=== PATIENT | male | born 1945 | race Caucasian/White ===

== ENCOUNTER → 2016-12-20 | Outpatient (CLI) | payer BC ==
[~2016-12-20] MED LIST: ASPI81TA28 PO; BNC/20125 PO; CYAN500T PO; DIAZ-165 PO; FLUT0.0529 PO; GLIM2TAB2 PO; METF1000 PO; MOME1AER4 INH; MULT-513 PO; OMEP20TA PO; VNFI INJ
[2016-12-20 12:10] LABS: BASO % 0.3 %; BASO ABS # 0.03 K/uL (0-0.2); COMPLETE YES; HEMATOCRIT 42.8 % (42-52); IG% 0.2 %; LYMPH % 12.3 %; LYMPH ABS # 1.16 K/uL (1.2-3.4); MEAN CELL VOLUME 91.5 fL (80-100); MEAN CORPUSCULAR HEMOGLOBIN 30.8 pg (25-34); MEAN CORPUSCULAR HGB CONC 33.6 g/dl (32-36); MEAN PLATELET VOLUME 9.6 fL (7.4-10.4); MONO % 12.2 %; PLATELET COUNT 221 K/uL (130-400); RED BLOOD COUNT 4.68 M/uL (4.7-6.1); WHITE BLOOD COUNT 9.46 K/uL (4.8-10.8)
[2016-12-20 12:25] LABS: ESTIMATED AVERAGE GLUCOSE 123 mg/dl; HA1C FLAG Normal (Normal)
[2016-12-20 12:53] LABS: ALT/SGPT 21 U/L (12-78); AST/SGOT 15 U/L (15-37); BLOOD UREA NITROGEN 18 mg/dl (7-18); BUN/CREATININE RATIO 14.7 (10-20); CALCIUM 9.2 mg/dl (8.5-10.1); CARBON DIOXIDE 29 mmol/L (21-32); CHLORIDE 101 mmol/L (98-107); GLUCOSE 117 mg/dl (70-99); POTASSIUM 4.1 mmol/L (3.5-5.1); SODIUM 136 mmol/L (136-145)
[2016-12-20 12:56] LABS: ALKALINE PHOSPHATASE 80 U/L (45-117)
== END | disposition home or self-care (01) ==
LOC: C.LAB 10:37
PROVIDERS: ATTEND Family Medicine
DX: M05.741 Rheumatoid arthritis with rheumatoid factor of right hand without organ or systems involvement (principal); M05.742 Rheumatoid arthritis with rheumatoid factor of left hand without organ or systems involvement; I10 Essential (primary) hypertension; E11.9 Type 2 diabetes mellitus without complications

== ENCOUNTER → 2017-07-02 | Outpatient (CLI) | payer BC ==
[2017-07-02 09:35] LABS: BASO % 0.4 %; BASO ABS # 0.03 K/uL (0-0.2); EOS % 2.7 %; EOS ABS # 0.19 K/uL (0-0.5); HEMATOCRIT 42.3 % (42-52); HEMOGLOBIN 14.6 g/dL (14.0-18.0); IG# 0.01 K/uL (0.00-0.02); LYMPH % 22.2 %; LYMPH ABS # 1.56 K/uL (1.2-3.4); MEAN CELL VOLUME 91.4 fL (80-100); MEAN CORPUSCULAR HEMOGLOBIN 31.5 pg (25-34); MEAN CORPUSCULAR HGB CONC 34.5 g/dl (32-36); MEAN PLATELET VOLUME 9.7 fL (7.4-10.4); MONO % 11.2 %; MONO ABS # 0.79 K/uL (0.11-0.59); NEUT % 63.4 %; NEUT ABS # 4.45 K/uL (1.4-6.5); PLATELET COUNT 230 K/uL (130-400); RED CELL DISTRIBUTION WIDTH CV 13.8 % (11.5-14.5); RED CELL DISTRIBUTION WIDTH SD 45.3 fL (36.4-46.3); WHITE BLOOD COUNT 7.03 K/uL (4.8-10.8)
[2017-07-02 09:50] LABS: HEMOGLOBIN A1C 7.5 % (4.5-5.6)
[2017-07-02 09:55] LABS: CREATININE 1.22 mg/dl (0.60-1.40)
[2017-07-02 09:56] LABS: ALBUMIN 3.9 gm/dl (3.4-5.0); ALT/SGPT 24 U/L (12-78); AST/SGOT 15 U/L (15-37); CHOLESTEROL 176 mg/dl (0-200)
[2017-07-02 09:59] LABS: ALKALINE PHOSPHATASE 88 U/L (45-117); LDL CHOLESTEROL CALCULATED 110 mg/dl; TOTAL PROTEIN 7.4 gm/dl (6.4-8.2)
== END | disposition home or self-care (01) ==
LOC: C.LAB1850 07:05
PROVIDERS: ATTEND Internal Medicine Rheumatology
DX: Z00.00 Encounter for general adult medical examination without abnormal findings (principal); Z13.220 Encounter for screening for lipoid disorders; E11.9 Type 2 diabetes mellitus without complications; B35.3 Tinea pedis; M05.741 Rheumatoid arthritis with rheumatoid factor of right hand without organ or systems involvement; M05.742 Rheumatoid arthritis with rheumatoid factor of left hand without organ or systems involvement

== ENCOUNTER → 2017-10-01 | Outpatient (CLI) | payer BC ==
[2017-10-01 14:34] LABS: BASO % 0.5 %; BASO ABS # 0.04 K/uL (0-0.2); EOS % 2.4 %; EOS ABS # 0.19 K/uL (0-0.5); HEMATOCRIT 39.3 % (42-52); HEMOGLOBIN 13.5 g/dL (14.0-18.0); IG# 0.01 K/uL (0.00-0.02); LYMPH % 19.7 %; LYMPH ABS # 1.59 K/uL (1.2-3.4); MEAN CELL VOLUME 90.3 fL (80-100); MEAN CORPUSCULAR HGB CONC 34.4 g/dl (32-36); MEAN PLATELET VOLUME 9.8 fL (7.4-10.4); MONO ABS # 1.05 K/uL (0.11-0.59); NEUT % 64.3 %; PLATELET COUNT 228 K/uL (130-400); RED CELL DISTRIBUTION WIDTH CV 13.9 % (11.5-14.5); RED CELL DISTRIBUTION WIDTH SD 45.9 fL (36.4-46.3); WHITE BLOOD COUNT 8.08 K/uL (4.8-10.8)
== END | disposition home or self-care (01) ==
LOC: C.LAB1850 12:43
PROVIDERS: ATTEND Neuromusculoskeletal Medicine & OMM
DX: D64.9 Anemia, unspecified (principal)

== ENCOUNTER 2020-03-08 06:12 | Observation (INO) ==
[2020-03-08] MEDS ORDERED: SODIUM CHLORIDE 0.9% 250 ML IV PRN ×2 (06:24→07:33)
--- NOTE | 2020-03-08 06:55 | Emergency Department Note ---
History of Present Illness General Chief complaint: Abnormal Labs/Diagnostic Testing Stated complaint: SEVERE BLEEDING ANEMIA Time Seen by Provider: 03/08/20 06:31 Source: patient, RN notes reviewed and old records reviewed Mode of arrival: ambulatory Limitations: no limitations History of Present Illness Provider complaint: anemia, weakness Onset (ago): week(s) 3 Maximum Pain Intensity: 4 Current Pain Intensity: 0 Relieved By: + rest Exacerbated By: + movement Associated symptoms: + weakness; no chest pain, no diaphoresis, no fever/chills, no loss of appetite, no nausea/vomiting and no shortness of breath Treatments prior to arrival: none This is a 74-year-old male who has a remote history of GI bleed. The patient is unsure of who scoped him however he notes that they were unable to find history of a bleed. The patient notes for the past 2 or 3 weeks he has been progressively weaker. He went to his primary care physician's office who checked a hemoglobin level. The patient was then sent to the emergency department. Patient reports the weakness is made worse by movement however rest makes it better. He has not taken anything for the weakness prior to arrival. Home Medications Medication Instructions Recorded Confirmed Type aspirin 81 mg tablet 81 mg PO DAILY tab 10/31/18 03/08/20 History cyanocobalamin (vitamin B-12) 1,000 mcg PO WEEKLY tab 10/31/18 03/08/20 History 1,000 mcg tablet fluticasone propionate 50 2 sprays INTRANASAL QPM #3 gm 10/31/18 03/08/20 History mcg/actuation nasal spray,suspension lancets 33 gauge #100 ea 10/31/18 02/21/20 History thiamine HCl (vitamin B1) 50 mg 50 mg PO WEEKLY tab 10/31/18 03/08/20 History tablet cholecalciferol (vitamin D3) 25 1,000 units PO .COMPLEX 11/12/18 03/08/20 History mcg (1,000 unit) capsule vitamin E (dl, acetate) 400 unit 400 units PO WEEKLY cap 11/12/18 03/08/20 History capsule blood sugar diagnostic #10 ea 03/15/19 02/21/20 History FreeStyle Marcio 14 Day Manson #1 ea NS 03/16/19 02/21/20 Rx FreeStyle Marcio 14 Day Sensor #2 ea NS 05/14/19 02/21/20 Rx methimazole 5 mg tablet 5 mg PO DAILY #90 tab 05/23/19 03/08/20 Rx mometasone 1 inh INHALATION QPM #3 ea 11/01/19 03/08/20 Rx metformin 1,000 mg tablet 1,000 mg PO BID #180 tab 01/11/20 03/08/20 Rx diclofenac sodium 1 % topical gel 4 g TOPICAL QID PRN #100 g 02/21/20 03/08/20 Rx multivitamin 1 tab PO DAILY tab 02/21/20 03/08/20 History olmesartan 20 0.5 tab PO Q OTHER DAY tab 02/21/20 03/08/20 History mg-hydrochlorothiazide 12.5 mg tablet diazepam 5 mg tablet 2.5 - 5 mg PO DAILY #30 tab 03/07/20 03/08/20 Rx aspirin [Aspirin Low Dose] 81 mg PO DAILY 03/08/20 03/08/20 History Allergies Allergy/AdvReac Type Severity Reaction Status Date / Time No Known Drug Allergies Allergy Verified 02/21/20 08:40 Past Med/Surg History Medical History Allergic rhinitis Anxiety Aortic aneurysm Aortic valve stenosis, mild Asthma Carpal tunnel syndrome Cataract (lens) fragments in eye following cataract surgery, bilateral Diabetic foot ulcer associated with type 2 diabetes mellitus Diabetic peripheral neuropathy associated with type 2 diabetes mellitus Diverticulosis of colon Dyslipidemia Hallux abducto valgus, bilateral History of SCC (squamous cell carcinoma) of skin Hypertension Hyperthyroidism Personal history of diabetic foot ulcer Rheumatoid arthritis involving both hands with positive rheumatoid factor Stage 2 chronic kidney disease Venous insufficiency Surgical History History of appendectomy Hx of tonsillectomy No pertinent past surgical history Success teeth extracted Family History Father Myocardial infarction Grandfather Myocardial infarction Denies family history of Ovarian cancer Prostate cancer Breast cancer Colorectal cancer Social History (Updated 03/08/20 @ 10:01 by Lazaro El, DO) Smoking Status: Former smoker Tobacco Type: Cigarettes Age Started Using Tobacco: 16; Age Quit Using Tobacco: 56; Cigarettes Per Day: 4; Second Hand Exposure: No; Do You Dip or Chew Tobacco: No; Tobacco Cessation Education Requested by Patient: No Hx Alcohol Use: Yes Hx Substance Use: No Preferred Language: Mosotho Communication Ability: Effective Visual Impairment: Partially Limited Hearing Ability: Use of Hearing Aid 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: No Beliefs That Will Affect Care: None marital status: Current Living Situation: Spouse current occupational status: retired Other Information That Helps Us Care for You: No Feels Safe at Home: Yes Safety Concerns: Feels Safe At This Time Childhood Exposure to Second-Hand Smoke: Yes Dental Care, Regularly: Yes Physical Activity Frequency: 5-6 Times per Week Seatbelt Use: always Sunscreen Use: No Assistive Devices: Contacts Assistive Devices Comment: left contact Review of Systems A total of 10 systems reviewed and were otherwise negative Physical Exam Vital Signs Vital Signs - 24 hr 03/08/20 06:15 03/08/20 06:36 03/08/20 06:38 Temperature 36.8 C Temperature Source Oral Pulse Rate 101 H 82 82 Pulse Rate from SpO2 Sensor 83 82 Respiratory Rate 18 16 16 Respiratory Depth Normal Blood Pressure 165/77 H 147/81 H Blood Pressure Mean 106 117 Blood Pressure Position Lying Pulse Oximetry 98 99 99 Oxygen Delivery Method Room Air Room Air Room Air Sepsis Recent Fever Within 48 Hours No Sepsis New/Unexplained Change in Mental Status N/A Sepsis Action Taken by Nursing No Action Required VITAL SIGNS - Vital signs and nursing notes were reviewed. GENERAL - 74-year-old male appearing stated age who is in no acute distress. Communicates well with provider and answers questions appropriately. SKIN - Without rashes. HEAD - NC/AT. EYES - PERRL with EOMI bilaterally. Sclera anicteric. Palpebral conjunctiva pink and moist with no injection noted. EARS - No deformities of external structures noted on gross examination bilaterally. No pain elicited with palpation of the tragus bilaterally. External auditory canals without discharge or otorrhea. Tympanic membranes pearly khanna without retraction or bulging. No fluid or purulent material visualized behind the TM. Handle of malleus, umbo, cone of light, pars tensa/flaccid all easily visualized. NOSE - Midline and without cyanosis. No epistaxis or purulent drainage noted. Septum midline without deviation or septal hematoma noted. MOUTH/OROPHARYNX - Without perioral cyanosis. Buccal mucosa pink and moist and without leukoplakia. Tongue midline with equal elevation of palate bilaterally. No tonsillar hypertrophy, erythema, or exudates noted. dentition noted. NECK - Neck with FROM. Supple to palpation. lymphadenopathy noted. No nuchal rigidity. LUNGS - Chest wall symmetric without accessory muscle use, intercostals retractions, or central cyanosis. Normal vesicular breath sounds CTA B/L. No wheezes, rales, or rhonchi appreciated. CARDIAC - RRR with S1/S2. No murmur, rubs, or gallops appreciated. ABDOMEN - Abdominal contour without pulsations or visible masses. BS normoactive all four quadrants. No tenderness, palpable masses, hepatosplenomegaly, or ascites noted. RECTAL - Black tarry stool, heme positive EXTREMITIES - No clubbing or peripheral cyanosis. No pretibial edema present. +3/5 radial, posterior tibial, and dorsalis pedis pulses palpated throughout. +5/5 strength noted in UE/LE bilaterally. NEUROLOGIC - Cranial nerves II through XII grossly intact. Sensory intact to light touch throughout. Patellar reflexes +2/4. PSYCH - A&Ox3 and cooperates fully with examiner. Pt is very pleasant and interacts well with examiner. Procedures Stool Hemoccult Procedural Steps Taken: stool placed in appropriate test area, developer placed on stool and control areas and controls appropriately positive and negative Hemoccult result: positive Course Administered Medications Acetaminophen (Acetaminophen 325 Mg Tab) 650 mg PO Q4H PRN PRN Reason: Pain Stop: 04/08/20 05:14 Last Admin: 03/09/20 05:23 Dose: 650 mg Documented by: [id number] Aspirin (Aspirin 81 Mg Ectab) 81 mg PO DAILY [facility] Stop: 04/07/20 09:04 Last Admin: 03/08/20 09:44 Dose: Not Given Documented by: [id number] Diazepam (Diazepam 5 Mg Tablet) 2.5 mg PO BID [facility] Stop: 04/07/20 20:59 Last Admin: 03/08/20 21:09 Dose: 2.5 mg Documented by: [id number] Fluticasone Furoate (Fluticasone Furoate 100mcg 14 Puffs/Inhaler) 1 puffs INH QPM [facility] Stop: 04/07/20 20:59 Last Admin: 03/08/20 21:07 Dose: Not Given Documented by: [id number] Fluticasone Propionate (Fluticasone Propionate Na Spr 16 Gm Btl) 2 sprays NA QPM [facility] Stop: 04/07/20 20:59 Last Admin: 03/08/20 21:07 Dose: Not Given Documented by: [id number] Gabapentin (Gabapentin 600 Mg Tab) 600 mg PO Q8H [facility] Stop: 03/09/20 22:01 Last Admin: 03/09/20 05:19 Dose: 600 mg Documented by: [id number] Thiamine HCl 100 mg/ Syringe 10 mls @ 2 mls/min IV QAM [facility] Stop: 04/07/20 10:59 Last Admin: 03/08/20 12:26 Dose: 2 mls/min Documented by: [id number] Folic Acid 1 mg/ Syringe 10 mls @ 5 mls/min IV QAM [facility] Stop: 04/07/20 10:59 Last Admin: 03/08/20 12:25 Dose: 5 mls/min Documented by: [id number] Insulin Aspart (Insulin Aspart 100 Units/Ml 3 Ml Pen) 0 units SC ACHS [facility] Stop: 04/07/20 09:04 Last Admin: 03/08/20 21:10 Dose: 2 units Documented by: [id number] Cosigned by: [id number] Admin: 03/08/20 17:39 Dose: 4 units Documented by: [id number] Cosigned by: [id number] Admin: 03/08/20 12:20 Dose: 1 units Documented by: [id number] Cosigned by: [id number] Admin: 03/08/20 09:42 Dose: 3 units Documented by: [id number] Cosigned by: [id number] Methimazole (Methimazole 5 Mg Tablet) 5 mg PO DAILY [facility] Stop: 04/07/20 09:04 Last Admin: 03/08/20 12:27 Dose: 5 mg Documented by: [id number] Multivitamins (Multivitamin Tab) 1 tab PO DAILY [facility] Stop: 04/07/20 09:04 Last Admin: 03/08/20 12:20 Dose: 1 tab Documented by: [id number] Vitamin E (Tocopheryl, Dl-Alpha 400 Units Cap) 400 units PO We@0900 [facility] Stop: 04/07/20 10:59 Last Admin: 03/08/20 12:28 Dose: 400 units Documented by: [id number] Discontinued Medications Acetaminophen (Acetaminophen 325 Mg Tab) Confirm Administered Dose 325 mg .ROUTE .STK-MED ONE Stop: 03/09/20 05:18 Last Admin: 03/09/20 05:19 Dose: Not Given Documented by: [id number] Gabapentin (Gabapentin 600 Mg Tab) 1,200 mg PO NOW ONE Stop: 03/08/20 10:31 Last Admin: 03/08/20 12:26 Dose: 1,200 mg Documented by: [id number] Gabapentin (Gabapentin 600 Mg Tab) 600 mg PO Q6H [facility] Stop: 03/08/20 22:01 Last Admin: 03/08/20 21:09 Dose: 600 mg Documented by: [id number] Admin: 03/08/20 17:39 Dose: 600 mg Documented by: [id number] Pantoprazole Sodium 80 mg/ (Dextrose) 120 mls @ 480 mls/hr IV NOW ONE Stop: 03/08/20 07:14 Last Infusion: 03/08/20 07:39 Dose: 0 mls/hr Documented by: [id number] Admin: 03/08/20 07:16 Dose: 480 mls/hr Documented by: [id number] Pantoprazole Sodium 40 mg/ (Dextrose) 100 mls @ 20 mls/hr IV Q5H [facility] Stop: 04/07/20 07:14 Last Admin: 03/08/20 12:49 Dose: Not Given Documented by: [id number] Infusion: 03/08/20 12:48 Dose: 0 mg/hr, 0 mls/hr Documented by: [id number] Admin: 03/08/20 07:39 Dose: 8 mg/hr, 20 mls/hr Documented by: [id number] Sodium Chloride (Nss 1000ml) 1,000 mls @ 80 mls/hr IV .[id number] [facility] Stop: 04/07/20 09:04 Last Infusion: 03/08/20 15:30 Dose: 0 mls/hr Documented by: [id number] Infusion: 03/08/20 09:45 Dose: 0 mls/hr Documented by: [id number] Admin: 03/08/20 09:44 Dose: 80 mls/hr Documented by: [id number] Critical Care Time I have personally spent greater than 30 minutes of critical care time in the direct management of this patient. This includes bedside care, interpretation of diagnostic studies, and testing, discussion with consultants, patient, and family members, and other required patient management activities. This 30 minutes is in excess of all separately billable procedures. Medical Decision Making Differential Diagnosis Reactive airway disease, pneumonia, pneumothorax, COPD, CHF, infections, cardiac ischemia, pulmonary embolism, musculoskeletal, gastrointestinal, as well as other pathologies. Medical Records Attestation: I reviewed the patient's medical records. Home Medications Current Medication List: was personally reviewed by me Laboratory Data Attestation: I reviewed the patient's lab results. Result diagrams: 03/09/20 06:30 03/08/20 06:37 Lab Results 03/08/20 03/08/20 03/08/20 Range/Units 06:37 06:37 06:37 WBC (4.8-10.8) K/uL RBC (4.7-6.1) M/uL Hgb (14.0-18.0) g/dL Hct (42-52) % MCV (80-100) fL MCH (25-34) pg MCHC (32-36) g/dL RDW Std Deviation (36.4-46.3) fL RDW Coeff of Brian (11.5-14.5) % Plt Count (130-400) K/uL MPV (7.4-10.4) fL Immature Gran % (Auto) % Neut % (Auto) % Lymph % (Auto) % Mclean % (Auto) % Eos % (Auto) % Baso % (Auto) % Neut # (Auto) (1.4-6.5) K/uL Lymph # (Auto) (1.2-3.4) K/uL Mclean # (Auto) (0.11-0.59) K/uL Eos # (Auto) (0-0.5) K/uL Baso # (Auto) (0-0.2) K/uL Immature Gran # (Auto) (0.00-0.02) K/uL Polychromasia Hypochromasia PT 11.0 (9.0-12.0) Seconds INR 1.0 (0.9-1.1) APTT 23.8 (21.0-31.0) Seconds PTT Ratio 0.9 Sodium 136 (136-145) mmol/L Potassium 3.9 (3.5-5.1) mmol/L Chloride 101 (98-107) mmol/L Carbon Dioxide 25 (21-32) mmol/L Anion Gap 10.0 (3-11) BUN 20 H (7-18) mg/dl Creatinine 1.39 (0.6-1.4) mg/dl Est Cr Clr Drug Dosing 57.4 ml/min Est GFR ( Amer) 56.7 Est GFR (Non-Af Amer) 48.9 BUN/Creatinine Ratio 14.0 (10-20) Glucose 227 H (70-99) mg/dl Calcium 8.8 (8.5-10.1) mg/dl Magnesium 2.0 (1.8-2.4) mg/dl Total Bilirubin 0.5 (0.2-1) mg/dl Direct Bilirubin 0.2 (0-0.2) mg/dl AST 15 (15-37) U/L ALT 29 (12-78) U/L Alkaline Phosphatase 66 (45-117) U/L Troponin I < 0.015 (0-0.045) ng/ml Total Protein 7.2 (6.4-8.2) gm/dl Albumin 3.7 (3.4-5.0) gm/dl TSH 2.370 (0.300-4.500) uIu/ml SARS-CoV-2 Ag (Rapid) (Negative) Blood Type O Positive Antibody Screen NEGATIVE Crossmatch See Detail 03/08/20 03/08/20 Range/Units 06:37 06:48 WBC 6.08 (4.8-10.8) K/uL RBC 2.65 L (4.7-6.1) M/uL Hgb 6.9 L* (14.0-18.0) g/dL Hct 22.4 L (42-52) % MCV 84.5 (80-100) fL MCH 26.0 (25-34) pg MCHC 30.8 L (32-36) g/dL RDW Std Deviation 48.1 H (36.4-46.3) fL RDW Coeff of Brian 15.4 H (11.5-14.5) % Plt Count 272 (130-400) K/uL MPV 10.3 (7.4-10.4) fL Immature Gran % (Auto) 0.2 % Neut % (Auto) 58.0 % Lymph % (Auto) 25.5 % Mclean % (Auto) 12.7 % Eos % (Auto) 3.1 % Baso % (Auto) 0.5 % Neut # (Auto) 3.53 (1.4-6.5) K/uL Lymph # (Auto) 1.55 (1.2-3.4) K/uL Mclean # (Auto) 0.77 H (0.11-0.59) K/uL Eos # (Auto) 0.19 (0-0.5) K/uL Baso # (Auto) 0.03 (0-0.2) K/uL Immature Gran # (Auto) 0.01 (0.00-0.02) K/uL Polychromasia 1+ Hypochromasia Present PT (9.0-12.0) Seconds INR (0.9-1.1) APTT (21.0-31.0) Seconds PTT Ratio Sodium (136-145) mmol/L Potassium (3.5-5.1) mmol/L Chloride (98-107) mmol/L Carbon Dioxide (21-32) mmol/L Anion Gap (3-11) BUN (7-18) mg/dl Creatinine (0.6-1.4) mg/dl Est Cr Clr Drug Dosing ml/min Est GFR ( Amer) Est GFR (Non-Af Amer) BUN/Creatinine Ratio (10-20) Glucose (70-99) mg/dl Calcium (8.5-10.1) mg/dl Magnesium (1.8-2.4) mg/dl Total Bilirubin (0.2-1) mg/dl Direct Bilirubin (0-0.2) mg/dl AST (15-37) U/L ALT (12-78) U/L Alkaline Phosphatase (45-117) U/L Troponin I (0-0.045) ng/ml Total Protein (6.4-8.2) gm/dl Albumin (3.4-5.0) gm/dl TSH (0.300-4.500) uIu/ml SARS-CoV-2 Ag (Rapid) Negative (Negative) Blood Type Antibody Screen Crossmatch ECG Data Attestation: I personally reviewed and interpreted this ECG as follows: Indication: + weakness Rate (beats per minute): 76 Rhythm: + normal sinus ECG Intervals/blocks: + Incomplete right bundle branch block ECG [place]: + Normal ECG ST segments: no ST depression and no ST elevation Comparison ECG Date: from (11/12/2012) Change: no significant change MDM Narrative Patient was seen and evaluated as above in room A3. Review was performed of nursing notes and vital signs. I did review pertinent previous visits and patient history. After obtaining a thorough history and physical examination the above work up was performed. This 74-year-old male who presents emergency department complaining of generalized weakness. The patient is heme positive on physical examination he was started on a Protonix bolus and drip. Patient was typed and screened and crossed for 1 unit of packed red blood cells. I did discuss the case with gastroenterology as well as the hospitalist service who did agree to admit the patient. Patient signed the consent for blood and this was placed on the chart. An order was placed for continuous cardiac monitoring. The monitor shows a rate of 70 with Normal SInus rhythm. The patient was evaluated during a period of high volume and high acuity while the hospital was at overcapacity during the global COVID-19 pandemic, and that diagnosis was suspected/considered upon their initial presentation. Their evaluation, treatment and testing was consistent with current guidelines for patients who present with complaints or symptoms that may be related to COVID- 19. Impression & Plan Heme positive stool, Acute blood loss anemia Discharge Plan Visit Data Chief Complaint: Abnormal Labs/Diagnostic Testing Stated Complaint: SEVERE BLEEDING ANEMIA ED Provider: Edmond Argueta Discharge Problem: Heme positive stool, Acute blood loss anemia Patient Disposition: Admitted As Inpatient Discharge Instructions Interventions: ED Discharge Assessment Last Done: 03/08/20 09:01
[2020-03-08 06:58] LABS: Partial Thromboplastin Ratio 0.9; Partial Thromboplastin Time 23.8 Seconds (21.0-31.0)
[2020-03-08] MEDS ORDERED: PANTOprazole 80 MG in DEXTROSE 5% 100 ML IV ONE (07:00)
[2020-03-08 07:02] LABS: Hematocrit (blood only) 22.4 % (42-52); Hemoglobin 6.9 g/dL (14.0-18.0); Mean Corpuscular Hgb Conc 30.8 g/dL (32-36); Mean Corpuscular Volume 84.5 fL (80-100); Mean Platelet Volume 10.3 fL (7.4-10.4); Platelet Count 272 K/uL (130-400); RDW Coefficient of Variation 15.4 % (11.5-14.5); RDW Standard Deviation 48.1 fL (36.4-46.3); Red Blood Count 2.65 M/uL (4.7-6.1); White Blood Count 6.08 K/uL (4.8-10.8)
[2020-03-08 07:06] LABS: Alanine Aminotransferase 29 U/L (12-78); Albumin Level 3.7 gm/dl (3.4-5.0); Aspartate Aminotransferase 15 U/L (15-37); Basophils # (auto) 0.03 K/uL (0-0.2); Basophils % (auto) 0.5 %; Bilirubin Direct 0.2 mg/dl (0-0.2); Blood Urea Nitrogen 20 mg/dl (7-18); Calcium 8.8 mg/dl (8.5-10.1); Carbon Dioxide 25 mmol/L (21-32); Chloride 101 mmol/L (98-107); Creatinine Clr Calc Pharmacy 57.4 ml/min; Eosinophils # (auto) 0.19 K/uL (0-0.5); Eosinophils % (auto) 3.1 %; Est GFR (African American) 56.7; Est GFR (Non-African American) 48.9; Glucose 227 mg/dl (70-99); Hypochromasia Present; Immature Granulocytes # (auto) 0.01 K/uL (0.00-0.02); Immature Granulocytes % (auto) 0.2 %; Lymphocytes # (auto) 1.55 K/uL (1.2-3.4); Lymphocytes % (auto) 25.5 %; Monocytes # (auto) 0.77 K/uL (0.11-0.59); Monocytes % (auto) 12.7 %; Neutrophils # (auto) 3.53 K/uL (1.4-6.5); Polychromasia 1+; Potassium 3.9 mmol/L (3.5-5.1); Sodium 136 mmol/L (136-145)
[2020-03-08 07:17] LABS: Alkaline Phosphatase 66 U/L (45-117); Bilirubin,Total 0.5 mg/dl (0.2-1); Total Protein 7.2 gm/dl (6.4-8.2); Troponin I < 0.015 ng/ml (0-0.045)
[2020-03-08] MEDS: PANTOprazole 40 MG in DEXTROSE 5% 100 ML IV SCH ×2 (07:39→12:49)
[2020-03-08] MEDS ORDERED: GLUCOSE 10 TABS/TUBE PO PRN (09:05)
[2020-03-08] MEDS ORDERED: GLUCAGON FOR INJ 1 MG VIAL SQ PRN (09:05)
[2020-03-08] MEDS ORDERED: DEXTROSE 50% 50 ML SYRINGE IV PRN (09:05)
[2020-03-08] MEDS ORDERED: GLUCOSE 40% GEL 15 GM TUBE PO PRN (09:05)
[2020-03-08] MEDS ORDERED: CARBOHYDRATES FOR HYPOGLYCEMIA PO PRN (09:05)
[2020-03-08] MEDS ORDERED: SODIUM CHLORIDE 0.9% 1000ML 1,000 ML IV SCH (09:05)
[2020-03-08] MEDS ORDERED: ONDANSETRON INJ 2 MG/ML 2 ML VIAL IV PRN (09:05)
[2020-03-08] MEDS: MULTIVITAMIN TAB PO SCH ×2 (09:40→12:20)
[2020-03-08] MEDS: INSULIN ASPART 100 UNITS/ML 3 ML PEN SC SCH ×4 (09:42→21:10)
[2020-03-08] MEDS: ASPIRIN 81 MG ECTAB PO SCH (09:44)
--- NOTE | 2020-03-08 10:09 | Gastrointestinal Consultation ---
Date of Consultation March 08, 2020 Assessment & Plan (1) Anemia: 74 year old male admitted through the ED w/ abnormal labs, dark stools. hgb 6. Notes GI bleed in past, obscure per pt. He uses ASA daily, Naproxen every other day. Vitals stable. DDX discussed: concern for UGI, PUD etc. NPO IV PPI bolus and drip Transfuse per primary service Trend HGB EGD today. Supervising Physician Co-Signing Physician Notes I have seen and examined the patient with ANABELL Wood whose note reflects our findings and plan. Patient with melena and anemia. BUN is normal. EGD today to evaluate for UGI source of blood loss in the setting of NSAID use and ASA. History of Present Illness Reason for Consultation: melena, anemia Requesting Physician: Benji Attending Physician: Pipo Leblanc MD History of Present Illness 74 year old male admitted through the ED w/ abnormal labs - gi asked to evaluate for anemia, melena, HGB 6. He notes about 3/4 weeks ago he noted fatigue and ex ercise intolerance. He saw his PCP who ordered CBC and notes slight anemia at that time w/ HGB around 9. He had persistent fatigue, exercise intolerance and sough care - repeat labs at that time showed HGB 6. He was asked to come to ED. Suggets over the past 3/4 weeks he has noted dark, black stools. He often intermittent has dark stools but not persistent like this. No BRB. No abd pain. Chronic GERD maintained on PPI. No breakthrough symptoms. No nausea, vomiting. No fever, chills, CP, SOB. ASA daily Aleve every other day 3-4 liquor containing drinks nightly since May No blood thinners Prior EGD/Colonoscopy for similar around 2012 Allergies Allergy/AdvReac Type Severity Reaction Status Date / Time No Known Drug Allergies Allergy Verified 02/21/20 08:40 Home Medications Medication Instructions Recorded Confirmed Type aspirin 81 mg tablet 81 mg PO DAILY tab 10/31/18 03/08/20 History cyanocobalamin (vitamin B-12) 1,000 mcg PO WEEKLY tab 10/31/18 03/08/20 History 1,000 mcg tablet fluticasone propionate 50 2 sprays INTRANASAL QPM #3 gm 10/31/18 03/08/20 History mcg/actuation nasal spray,suspension lancets 33 gauge #100 ea 10/31/18 02/21/20 History thiamine HCl (vitamin B1) 50 mg 50 mg PO WEEKLY tab 10/31/18 03/08/20 History tablet cholecalciferol (vitamin D3) 25 1,000 units PO .COMPLEX 11/12/18 03/08/20 History mcg (1,000 unit) capsule vitamin E (dl, acetate) 400 unit 400 units PO WEEKLY cap 11/12/18 03/08/20 History capsule blood sugar diagnostic #10 ea 03/15/19 02/21/20 History FreeStyle Marcio 14 Day [place] #1 ea NS 03/16/19 02/21/20 Rx FreeStyle Marcio 14 Day Sensor #2 ea NS 05/14/19 02/21/20 Rx methimazole 5 mg tablet 5 mg PO DAILY #90 tab 05/23/19 03/08/20 Rx mometasone 1 inh INHALATION QPM #3 ea 11/01/19 03/08/20 Rx metformin 1,000 mg tablet 1,000 mg PO BID #180 tab 01/11/20 03/08/20 Rx diclofenac sodium 1 % topical gel 4 g TOPICAL QID PRN #100 g 02/21/20 03/08/20 Rx multivitamin 1 tab PO DAILY tab 02/21/20 03/08/20 History olmesartan 20 0.5 tab PO Q OTHER DAY tab 02/21/20 03/08/20 History mg-hydrochlorothiazide 12.5 mg tablet diazepam 5 mg tablet 2.5 - 5 mg PO DAILY #30 tab 03/07/20 03/08/20 Rx aspirin [Aspirin Low Dose] 81 mg PO DAILY 03/08/20 03/08/20 History Patient History Medical History Allergic rhinitis Anxiety Aortic aneurysm Aortic valve stenosis, mild Asthma Carpal tunnel syndrome Cataract (lens) fragments in eye following cataract surgery, bilateral Diabetic foot ulcer associated with type 2 diabetes mellitus Diabetic peripheral neuropathy associated with type 2 diabetes mellitus Diverticulosis of colon Dyslipidemia Hallux abducto valgus, bilateral History of SCC (squamous cell carcinoma) of skin Hypertension Hyperthyroidism Personal history of diabetic foot ulcer Rheumatoid arthritis involving both hands with positive rheumatoid factor Stage 2 chronic kidney disease Venous insufficiency Surgical History History of appendectomy Hx of tonsillectomy No pertinent past surgical history [place] teeth extracted Family History Father Myocardial infarction Grandfather Myocardial infarction Denies family history of Ovarian cancer Prostate cancer Breast cancer Colorectal cancer Social History (Updated 03/08/20 @ 10:01 by Lazaro El, DO) Smoking Status: Former smoker Tobacco Type: Cigarettes Age Started Using Tobacco: 16; Age Quit Using Tobacco: 56; Cigarettes Per Day: 4; Second Hand Exposure: No; Do You Dip or Chew Tobacco: No; Tobacco Cessation Education Requested by Patient: No Hx Alcohol Use: Yes Hx Substance Use: No Preferred Language: Greenlandic Communication Ability: Effective Visual Impairment: Partially Limited Hearing Ability: Use of Hearing Aid 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 Helper Required: No Beliefs That Will Affect Care: None marital status: Current Living Situation: Spouse current occupational status: retired Other Information That Helps Us Care for You: No Feels Safe at Home: Yes Safety Concerns: Feels Safe At This Time Childhood Exposure to Second-Hand Smoke: Yes Dental Care, Regularly: Yes Physical Activity Frequency: 5-6 Times per Week Seatbelt Use: always Sunscreen Use: No Assistive Devices: Contacts Assistive Devices Comment: left contact Review of Systems Constitutional: no fever, no chills and no fatigue Respiratory: no cough and no dyspnea Cardiovascular: no chest pain and no dyspnea Gastrointestinal: + melena; no abdominal pain, no diarrhea/loose stools and no blood in stools Physical Exam Constitutional: WD/WN, vitals as above Neck: trachea midline Respiratory: normal respiratory effort, lungs clear to auscultation Cardiovascular: Rate/Rhythm: regular rate Gastrointestinal (Abdomen): normal bowel sounds, soft, nontender, no hepatosplenomegaly Results & Data ([facility]) Vital Signs (Past 12 Hours) Vital Signs Temp Pulse Pulse Resp BP BP Pulse Ox 03/08/20 09:14 36.8 C 71 18 154/73 H 97 03/08/20 08:54 35.6 C L 83 16 161/82 H 100 03/08/20 08:53 35.6 C L 83 16 161/82 H 100 03/08/20 08:44 36.7 C 74 18 169/75 H 99 03/08/20 08:29 36.5 C 72 18 151/77 H 100 03/08/20 08:13 77 18 151/77 H 100 03/08/20 08:11 36.9 C 72 18 151/77 H 100 03/08/20 06:38 82 16 99 03/08/20 06:36 82 16 147/81 H 99 03/08/20 06:15 36.8 C 101 H 18 165/77 H 98 Laboratory Results 03/08/20 03/08/20 03/08/20 Range/Units 08:51 08:15 08:15 WBC (4.8-10.8) K/uL RBC (4.7-6.1) M/uL Hgb (14.0-18.0) g/dL Hct (42-52) % MCV (80-100) fL MCH (25-34) pg MCHC (32-36) g/dL RDW Std Deviation (36.4-46.3) fL RDW Coeff of Brian (11.5-14.5) % Plt Count (130-400) K/uL MPV (7.4-10.4) fL Immature Gran % (Auto) % Neut % (Auto) % Lymph % (Auto) % Sharp % (Auto) % Eos % (Auto) % Baso % (Auto) % Neut # (Auto) (1.4-6.5) K/uL Lymph # (Auto) (1.2-3.4) K/uL Sharp # (Auto) (0.11-0.59) K/uL Eos # (Auto) (0-0.5) K/uL Baso # (Auto) (0-0.2) K/uL Immature Gran # (Auto) (0.00-0.02) K/uL Polychromasia Hypochromasia PT (9.0-12.0) Seconds INR (0.9-1.1) APTT (21.0-31.0) Seconds PTT Ratio Sodium (136-145) mmol/L Potassium (3.5-5.1) mmol/L Chloride (98-107) mmol/L Carbon Dioxide (21-32) mmol/L Anion Gap (3-11) BUN (7-18) mg/dl Creatinine (0.6-1.4) mg/dl Est Cr Clr Drug Dosing ml/min Est GFR ( Amer) Est GFR (Non-Af Amer) BUN/Creatinine Ratio (10-20) Glucose (70-99) mg/dl POC Glucose 258 H (70-99) mg/dl Calcium (8.5-10.1) mg/dl Magnesium (1.8-2.4) mg/dl Total Bilirubin (0.2-1) mg/dl Direct Bilirubin (0-0.2) mg/dl AST (15-37) U/L ALT (12-78) U/L Alkaline Phosphatase (45-117) U/L Troponin I (0-0.045) ng/ml Total Protein (6.4-8.2) gm/dl Albumin (3.4-5.0) gm/dl TSH (0.300-4.500) uIu/ml COVID-19 Eval Order Covid19 IDNow atMTNC SARS-CoV-2, RNA, NAAT NEGATIVE (NEGATIVE) SARS-CoV-2 Ag (Rapid) (Negative) Blood Type Antibody Screen Crossmatch 03/08/20 03/08/20 03/08/20 Range/Units 06:48 06:37 06:37 WBC 6.08 (4.8-10.8) K/uL RBC 2.65 L (4.7-6.1) M/uL Hgb 6.9 L* (14.0-18.0) g/dL Hct 22.4 L (42-52) % MCV 84.5 (80-100) fL MCH 26.0 (25-34) pg MCHC 30.8 L (32-36) g/dL RDW Std Deviation 48.1 H (36.4-46.3) fL RDW Coeff of Brian 15.4 H (11.5-14.5) % Plt Count 272 (130-400) K/uL MPV 10.3 (7.4-10.4) fL Immature Gran % (Auto) 0.2 % Neut % (Auto) 58.0 % Lymph % (Auto) 25.5 % Sharp % (Auto) 12.7 % Eos % (Auto) 3.1 % Baso % (Auto) 0.5 % Neut # (Auto) 3.53 (1.4-6.5) K/uL Lymph # (Auto) 1.55 (1.2-3.4) K/uL Sharp # (Auto) 0.77 H (0.11-0.59) K/uL Eos # (Auto) 0.19 (0-0.5) K/uL Baso # (Auto) 0.03 (0-0.2) K/uL Immature Gran # (Auto) 0.01 (0.00-0.02) K/uL Polychromasia 1+ Hypochromasia Present PT (9.0-12.0) Seconds INR (0.9-1.1) APTT (21.0-31.0) Seconds PTT Ratio Sodium 136 (136-145) mmol/L Potassium 3.9 (3.5-5.1) mmol/L Chloride 101 (98-107) mmol/L Carbon Dioxide 25 (21-32) mmol/L Anion Gap 10.0 (3-11) BUN 20 H (7-18) mg/dl Creatinine 1.39 (0.6-1.4) mg/dl Est Cr Clr Drug Dosing 57.4 ml/min Est GFR ( Amer) 56.7 Est GFR (Non-Af Amer) 48.9 BUN/Creatinine Ratio 14.0 (10-20) Glucose 227 H (70-99) mg/dl POC Glucose (70-99) mg/dl Calcium 8.8 (8.5-10.1) mg/dl Magnesium 2.0 (1.8-2.4) mg/dl Total Bilirubin 0.5 (0.2-1) mg/dl Direct Bilirubin 0.2 (0-0.2) mg/dl AST 15 (15-37) U/L ALT 29 (12-78) U/L Alkaline Phosphatase 66 (45-117) U/L Troponin I < 0.015 (0-0.045) ng/ml Total Protein 7.2 (6.4-8.2) gm/dl Albumin 3.7 (3.4-5.0) gm/dl TSH 2.370 (0.300-4.500) uIu/ml COVID-19 Eval Order SARS-CoV-2, RNA, NAAT (NEGATIVE) SARS-CoV-2 Ag (Rapid) Negative (Negative) Blood Type Antibody Screen Crossmatch 12/30/20 12/30/20 Range/Units 06:37 06:37 WBC (4.8-10.8) K/uL RBC (4.7-6.1) M/uL Hgb (14.0-18.0) g/dL Hct (42-52) % MCV (80-100) fL MCH (25-34) pg MCHC (32-36) g/dL RDW Std Deviation (36.4-46.3) fL RDW Coeff of Brian (11.5-14.5) % Plt Count (130-400) K/uL MPV (7.4-10.4) fL Immature Gran % (Auto) % Neut % (Auto) % Lymph % (Auto) % Sharp % (Auto) % Eos % (Auto) % Baso % (Auto) % Neut # (Auto) (1.4-6.5) K/uL Lymph # (Auto) (1.2-3.4) K/uL Sharp # (Auto) (0.11-0.59) K/uL Eos # (Auto) (0-0.5) K/uL Baso # (Auto) (0-0.2) K/uL Immature Gran # (Auto) (0.00-0.02) K/uL Polychromasia Hypochromasia PT 11.0 (9.0-12.0) Seconds INR 1.0 (0.9-1.1) APTT 23.8 (21.0-31.0) Seconds PTT Ratio 0.9 Sodium (136-145) mmol/L Potassium (3.5-5.1) mmol/L Chloride (98-107) mmol/L Carbon Dioxide (21-32) mmol/L Anion Gap (3-11) BUN (7-18) mg/dl Creatinine (0.6-1.4) mg/dl Est Cr Clr Drug Dosing ml/min Est GFR ( Amer) Est GFR (Non-Af Amer) BUN/Creatinine Ratio (10-20) Glucose (70-99) mg/dl POC Glucose (70-99) mg/dl Calcium (8.5-10.1) mg/dl Magnesium (1.8-2.4) mg/dl Total Bilirubin (0.2-1) mg/dl Direct Bilirubin (0-0.2) mg/dl AST (15-37) U/L ALT (12-78) U/L Alkaline Phosphatase (45-117) U/L Troponin I (0-0.045) ng/ml Total Protein (6.4-8.2) gm/dl Albumin (3.4-5.0) gm/dl TSH (0.300-4.500) uIu/ml COVID-19 Eval Order SARS-CoV-2, RNA, NAAT (NEGATIVE) SARS-CoV-2 Ag (Rapid) (Negative) Blood Type O Positive Antibody Screen NEGATIVE Crossmatch See Detail
--- NOTE | 2020-03-08 10:13 | Anesthesiology Consultation ---
Date of Service March 08, 2020 Assessment & Plan (1) Encounter for pre-operative examination: Chart Review Chart Review: Acceptable Risk for Surgery Consults Requested none ASA ASA3 Proposed Anesthesia Anesthesia Type: MAC Additional Notes 1st unit of PRBC finishing. Pt to get second unit of PRBC. History Surgery Operation Date: 03/08/20 16:30 Proposed Procedures p Esophagogastroduodenoscopy Dr Lofton - Viviana Lofton, DO Height/Weight Height: 6 ft Weight: 108 kg Allergies Allergy/AdvReac Type Severity Reaction Status Date / Time No Known Drug Allergies Allergy Verified 02/21/20 08:40 Medications Home Medications Medication Instructions Recorded Confirmed Last Taken aspirin 81 mg tablet 81 mg PO DAILY tab 10/31/18 03/08/20 Unknown cyanocobalamin (vitamin B-12) 1,000 mcg PO WEEKLY tab 10/31/18 03/08/20 Unknown 1,000 mcg tablet fluticasone propionate 50 2 sprays INTRANASAL QPM #3 gm 10/31/18 03/08/20 Unknown mcg/actuation nasal spray,suspension lancets 33 gauge #100 ea 10/31/18 02/21/20 Unknown thiamine HCl (vitamin B1) 50 mg 50 mg PO WEEKLY tab 10/31/18 03/08/20 Unknown tablet cholecalciferol (vitamin D3) 25 1,000 units PO .COMPLEX 11/12/18 03/08/20 Unknown mcg (1,000 unit) capsule vitamin E (dl, acetate) 400 unit 400 units PO WEEKLY cap 11/12/18 03/08/20 Unknown capsule blood sugar diagnostic #10 ea 03/15/19 02/21/20 Unknown FreeStyle Marcio 14 Day [place] #1 ea NS 03/16/19 02/21/20 Unknown FreeStyle Marcio 14 Day Sensor #2 ea NS 05/14/19 02/21/20 Unknown methimazole 5 mg tablet 5 mg PO DAILY #90 tab 05/23/19 03/08/20 Unknown mometasone 1 inh INHALATION QPM #3 ea 11/01/19 03/08/20 Unknown metformin 1,000 mg tablet 1,000 mg PO BID #180 tab 01/11/20 03/08/20 Unknown diclofenac sodium 1 % topical gel 4 g TOPICAL QID PRN #100 g 02/21/20 03/08/20 Unknown multivitamin 1 tab PO DAILY tab 02/21/20 03/08/20 Unknown olmesartan 20 0.5 tab PO Q OTHER DAY tab 02/21/20 03/08/20 Unknown mg-hydrochlorothiazide 12.5 mg tablet diazepam 5 mg tablet 2.5 - 5 mg PO DAILY #30 tab 03/07/20 03/08/20 Unknown aspirin [Aspirin Low Dose] 81 mg PO DAILY 03/08/20 03/08/20 Unknown Active Medications Generic Name Dose Route Start Last Admin Trade Name Brooks PRN Reason Stop Dose Admin Aspirin 81 mg 03/08/20 09:05 03/08/20 09:44 Aspirin 81 Mg Ectab PO 04/07/20 09:04 Not Given DAILY MAGALI Pantoprazole Sodium 40 mg/ 100 mls @ 20 mls/hr 03/08/20 07:15 03/08/20 07:39 Dextrose IV 04/07/20 07:14 8 mg/hr Q5H MAGALI 20 mls/hr Administration 8 MG/HR Sodium Chloride 1,000 mls @ 80 mls/hr 03/08/20 09:05 03/08/20 09:45 Nss 1000ml IV 04/07/20 09:04 0 mls/hr .[id number] MAGALI Infusion Insulin Aspart 0 units 03/08/20 09:05 03/08/20 09:42 Insulin Aspart 100 Units/Ml 3 Ml Pen SC 04/07/20 09:04 3 units ACHS MAGALI Administration Multivitamins 1 tab 03/08/20 09:05 03/08/20 09:40 Multivitamin Tab PO 04/07/20 09:04 1 tab DAILY MAGALI Administration Past Medical History Medical History Allergic rhinitis Anxiety Aortic aneurysm Aortic valve stenosis, mild Asthma Carpal tunnel syndrome Cataract (lens) fragments in eye following cataract surgery, bilateral Diabetic foot ulcer associated with type 2 diabetes mellitus Diabetic peripheral neuropathy associated with type 2 diabetes mellitus Diverticulosis of colon Dyslipidemia Hallux abducto valgus, bilateral History of SCC (squamous cell carcinoma) of skin Hypertension Hyperthyroidism Personal history of diabetic foot ulcer Rheumatoid arthritis involving both hands with positive rheumatoid factor Stage 2 chronic kidney disease Venous insufficiency Past Family History Family History Father Myocardial infarction Grandfather Myocardial infarction Denies family history of Ovarian cancer Prostate cancer Breast cancer Colorectal cancer Past Surgical History Surgical History History of appendectomy Hx of tonsillectomy No pertinent past surgical history [place] teeth extracted Social History Smoking Status: Former smoker tobacco type: cigarettes Smoking cigarettes per day: 4 Do You Dip or Chew Tobacco: No Hx Alcohol Use: Yes Hx Substance Use: No substance use type: does not use Physical Exam Vital Signs Last Vital Signs Temp 36.9 C 03/08/20 10:14 Pulse 76 03/08/20 10:14 Resp 18 03/08/20 10:14 BP 173/78 H 03/08/20 10:14 Pulse Ox 100 03/08/20 10:14 Testing Laboratory Results 03/08/20 06:37 03/08/20 06:37 PT 11.0 Seconds (9.0-12.0) 03/08/20 06:37 INR 1.0 (0.9-1.1) 03/08/20 06:37 APTT 23.8 Seconds (21.0-31.0) 03/08/20 06:37 Blood Type O Positive 03/08/20 06:37 Antibody Screen NEGATIVE 03/08/20 06:37 03/08/20 08:51 POC Glucose 258 H COVID neg Electrocardiogram Date: 03/08/20 Findings: + NSR @ (76) incomplete RBBB, no significant change from 11/12/2012
--- NOTE | 2020-03-08 10:15 | History & Physical Report ---
Date of Service March 08, 2020 Assessment & Plan (1) Acute blood loss anemia: Continue Protonix gtt at 8 mg per hour Consult [facility] GI for endoscopic workup NPO for now (2) Heme positive stool: (3) Diabetes type 2, controlled: Hold Metformin therapy at present Sliding scale with Novolog ordered NPO at present for procedures (4) ETOH abuse: Drinks 3/4 of a quart of Liz daily AWSS ordered Resume outpatient Valium No prior history of outpatient rehab or alcohol Withdrawal symptoms Last drink 2 days ago. (5) DVT prophylaxis: No chemical prophylaxis due to acute GI bleed SCD's ordered Admission and Anticipated Discharge Date Admission Date: March 08, 2020 History of Present Illness Chief Complaint: Anemia Primary Care Provider: Migdalia Jeffries MD Tyrese Rios presented to the ER today with complaints of fatigue and a low Hemoglobin found on lab testing via Dr. Jeffries's office. He states that approximately 5 years ago he underwent a "major workup" for a prior GI bleed. He states that his workup at that time consisted of "multiple endoscopies" including a capsule endoscopy. No source of bleeding was found, and he was placed on Iron supplementation. His Hgb responded and was in the 14 range for years. He states that approximately 1 month ago he developed dyspnea on exertion as well as fatigue. He had a Hgb checked 2 weeks ago which was 9.6. He subsequently had dark stools and had a repeat Hgb yesterday at Dr. Jeffries's office, and it was noted to be 6.6. He was subsequently told to report to the ER. Upon arrival his Hgb was confirmed to be 6.6. Upon arrival to the ER, he was noted to be hemodynamically stable, he was transfused 2u PRBC was started on a protonix gtt and was subsequently admitted. At the time I saw the patient, he was feeling slightly improved. He denies any abdominal pain, fevers, chills, nausea, vomiting, hematemesis, or hematochezia. He notes dark stools, but no tarry stools. He takes aspirin therapy daily, but no other anticoagulation/antiplatelet therapy. He denies any further complaints at this time. Allergies Allergy/AdvReac Type Severity Reaction Status Date / Time No Known Drug Allergies Allergy Verified 02/21/20 08:40 Home Medications Medication Instructions Recorded Confirmed Type aspirin 81 mg tablet 81 mg PO DAILY tab 10/31/18 03/08/20 History cyanocobalamin (vitamin B-12) 1,000 mcg PO WEEKLY tab 10/31/18 03/08/20 History 1,000 mcg tablet fluticasone propionate 50 2 sprays INTRANASAL QPM #3 gm 10/31/18 03/08/20 History mcg/actuation nasal spray,suspension lancets 33 gauge #100 ea 10/31/18 02/21/20 History thiamine HCl (vitamin B1) 50 mg 50 mg PO WEEKLY tab 10/31/18 03/08/20 History tablet cholecalciferol (vitamin D3) 25 1,000 units PO .COMPLEX 11/12/18 03/08/20 History mcg (1,000 unit) capsule vitamin E (dl, acetate) 400 unit 400 units PO WEEKLY cap 11/12/18 03/08/20 History capsule blood sugar diagnostic #10 ea 03/15/19 02/21/20 History FreeStyle Marcio 14 Day [place] #1 ea NS 03/16/19 02/21/20 Rx FreeStyle Marcio 14 Day Sensor #2 ea NS 05/14/19 02/21/20 Rx methimazole 5 mg tablet 5 mg PO DAILY #90 tab 05/23/19 03/08/20 Rx mometasone 1 inh INHALATION QPM #3 ea 11/01/19 03/08/20 Rx metformin 1,000 mg tablet 1,000 mg PO BID #180 tab 01/11/20 03/08/20 Rx diclofenac sodium 1 % topical gel 4 g TOPICAL QID PRN #100 g 02/21/20 03/08/20 Rx multivitamin 1 tab PO DAILY tab 02/21/20 03/08/20 History olmesartan 20 0.5 tab PO Q OTHER DAY tab 02/21/20 03/08/20 History mg-hydrochlorothiazide 12.5 mg tablet diazepam 5 mg tablet 2.5 - 5 mg PO DAILY #30 tab 03/07/20 03/08/20 Rx aspirin [Aspirin Low Dose] 81 mg PO DAILY 03/08/20 03/08/20 History Past Med/Surg History Medical History Allergic rhinitis Anxiety Aortic aneurysm Aortic valve stenosis, mild Asthma Carpal tunnel syndrome Cataract (lens) fragments in eye following cataract surgery, bilateral Diabetic foot ulcer associated with type 2 diabetes mellitus Diabetic peripheral neuropathy associated with type 2 diabetes mellitus Diverticulosis of colon Dyslipidemia Hallux abducto valgus, bilateral History of SCC (squamous cell carcinoma) of skin Hypertension Hyperthyroidism Personal history of diabetic foot ulcer Rheumatoid arthritis involving both hands with positive rheumatoid factor Stage 2 chronic kidney disease Venous insufficiency Surgical History History of appendectomy Hx of tonsillectomy No pertinent past surgical history [place] teeth extracted Family History Father Myocardial infarction Grandfather Myocardial infarction Denies family history of Ovarian cancer Prostate cancer Breast cancer Colorectal cancer Social History (Updated 03/08/20 @ 10:01 by Lazaro El, DO) Smoking Status: Former smoker Tobacco Type: Cigarettes Age Started Using Tobacco: 16; Age Quit Using Tobacco: 56; Cigarettes Per Day: 4; Second Hand Exposure: No; Do You Dip or Chew Tobacco: No; Tobacco Cessation Education Requested by Patient: No Hx Alcohol Use: Yes Hx Substance Use: No Preferred Language: Sami Communication Ability: Effective Visual Impairment: Partially Limited Hearing Ability: Use of Hearing Aid 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 Required: No Beliefs That Will Affect Care: None marital status: Current Living Situation: Spouse current occupational status: retired Other Information That Helps Us Care for You: No Feels Safe at Home: Yes Safety Concerns: Feels Safe At This Time Childhood Exposure to Second-Hand Smoke: Yes Dental Care, Regularly: Yes Physical Activity Frequency: 5-6 Times per Week Seatbelt Use: always Sunscreen Use: No Assistive Devices: Contacts Assistive Devices Comment: left contact Review of Systems Review of Systems: All systems reviewed & are unremarkable except as noted in HPI & below Physical Exam Constitutional: WD/WN, vitals as above Eyes: PERRL, conjunctivae normal, anicteric sclerae ENMT: Ears: no hearing impairment and no external ear abnormality Neck: trachea midline, no thyromegaly Respiratory: normal respiratory effort, lungs clear to auscultation Cardiovascular: RRR, no murmur, no edema Gastrointestinal (Abdomen): normal bowel sounds, soft, nontender, no hepatosplenomegaly Musculoskeletal: Extremities: no cyanosis and no clubbing Skin: + pallor Neurologic: awake; not confused Speech / Cognition: normal speech Psychiatric: A+Ox3, euthymic affect Results & Data Results & Data ([facility]) Vital Signs (Past 12 Hours) Vital Signs Temp Pulse Pulse Resp BP BP Pulse Ox 03/08/20 09:14 36.8 C 71 18 154/73 H 97 03/08/20 08:54 35.6 C L 83 16 161/82 H 100 03/08/20 08:53 35.6 C L 83 16 161/82 H 100 03/08/20 08:44 36.7 C 74 18 169/75 H 99 03/08/20 08:29 36.5 C 72 18 151/77 H 100 03/08/20 08:13 77 18 151/77 H 100 03/08/20 08:11 36.9 C 72 18 151/77 H 100 03/08/20 06:38 82 16 99 03/08/20 06:36 82 16 147/81 H 99 03/08/20 06:15 36.8 C 101 H 18 165/77 H 98 Laboratory Results 03/08/20 06:37 03/08/20 06:37 INR 1.0 (0.9-1.1) 03/08/20 06:37 03/08/20 06:37 Troponin I < 0.015 Code Status & VTE Plan VTE Prophylaxis Plan VTE Prophylaxis will be ordered: Yes Reason for no VTE drug order: Contraindicated PG Care Time/CCT Total # of Minutes Spent Total Time Spent with Patient: Total time spent is greater than 50% in coordination of care (as documented) at patient's floor/unit and/or counseling patient: 60 minutes Coding Level of Care Code 69880 Initial Inpt Care Lvl 3 Diagnoses Acute blood loss anemia D62 Heme positive stool R19.5 Diabetes type 2, controlled E11.9 ETOH abuse F10.10 DVT prophylaxis Z29.9 Time Spent (min) 60
[2020-03-08] MEDS ORDERED: GABAPENTIN 1200MG ALCOHOL WITHDRAWAL LOAD PO STA (10:17)
[2020-03-08] MEDS ORDERED: LORazepam 1 MG/2 ML VIAL IV PRN (10:17)
[2020-03-08] MEDS ORDERED: GABAPENTIN 600 MG TAB PO ONE (10:30)
[2020-03-08] MEDS ORDERED: TOCOPHERYL, DL-ALPHA 400 UNITS CAP PO SCH (11:00)
--- NOTE | 2020-03-08 11:27 | GI REPORT ---
Patient Name: Tyrese Rios Procedure Date: 03/08/2020 10:57 AM Date of : 1945 Admit Type: Inpatient Age: 74 Gender: Male Attending MD: Viviana Lofton DO Procedure: Upper GI endoscopy Providers: Viviana Lofton DO Referring MD: Pipo Leblanc Indications: Acute post hemorrhagic anemia, Melena, h/o GI bleedin 2012 [facility] obvious cause Medicines: Propofol per Anesthesia Complications: No immediate complications. Estimated blood loss: Minimal. Estimated Blood Loss: Estimated blood loss was minimal. Procedure: Pre-Anesthesia Assessment: - Prior to the procedure, a History and Physical was performed, and patient medications, allergies and sensitivities were reviewed. The patient's tolerance of previous anesthesia was reviewed. - The risks and benefits of the procedure and the sedation options and risks were discussed with the patient. All questions were answered and informed consent was obtained. - Patient identification and proposed procedure were verified prior to the procedure by the physician and the nurse. The procedure was verified in the pre-procedure area in the procedure room. - Mental Status Examination: alert and oriented. Airway Examination: normal oropharyngeal airway and neck mobility. Respiratory Examination: clear to auscultation. CV Examination: normal. Abdominal Examination: bowel sounds present, abdomen soft and non-tender, no masses or organomegaly noted. - ASA Grade Assessment: III - A patient with severe systemic disease. After obtaining informed consent, the endoscope was passed under direct vision. Throughout the procedure, the patient's blood pressure, pulse, and oxygen saturations were monitored continuously. The Endoscope was introduced through the mouth, and advanced to the third part of duodenum. The upper GI endoscopy was accomplished without difficulty. The patient tolerated the procedure well. Findings: Patchy, white plaques were found in the lower third of the esophagus. Biopsies were taken with a cold forceps for histology. Verification of patient identification for the specimen was done by the physician and nurse using the patient's name and date. Estimated blood loss was minimal. The stomach was normal. The examined duodenum was normal. Impression: - Esophageal plaques were found, suspicious for candidiasis. Biopsied. - Normal stomach. - Normal examined duodenum. Recommendation: - Await pathology results. - Perform a colonoscopy as an outpatient in the next 1-2 weeks. - Return patient to [facility] for [facility] care. Viviana Lofton D.O. Viviana Lofton, 03/08/2020 11:27:08 AM This report has been signed electronically. Note Initiated On: 03/08/2020 10:57 AM Number of Addenda: 0 I attest to the content of the Intraoperative Record and orders documented therein, exceptions below {[id number]}
--- NOTE | 2020-03-08 11:52 | Anesthesiology Progress Note ---
Date of Service March 08, 2020 Anesthesia Post Procedure Vital Signs Vital Signs: Temp Pulse Pulse Resp BP BP Pulse Ox 03/08/20 11:38 75 20 120/67 99 03/08/20 11:25 36.6 C 70 16 136/71 99 03/08/20 11:23 36.6 C 70 16 136/71 99 03/08/20 11:10 37.0 C 68 16 137/73 100 03/08/20 10:55 37.0 C 71 16 146/69 H 100 03/08/20 10:38 37.0 C 71 16 146/69 H 100 03/08/20 10:27 37.0 C 81 16 150/71 H 99 03/08/20 10:14 36.9 C 76 18 173/78 H 100 03/08/20 09:14 36.8 C 71 18 154/73 H 97 03/08/20 08:54 35.6 C L 83 16 161/82 H 100 03/08/20 08:53 35.6 C L 83 16 161/82 H 100 03/08/20 08:44 36.7 C 74 18 169/75 H 99 03/08/20 08:29 36.5 C 72 18 151/77 H 100 03/08/20 08:13 77 18 151/77 H 100 03/08/20 08:11 36.9 C 72 18 151/77 H 100 03/08/20 06:38 82 16 99 03/08/20 06:36 82 16 147/81 H 99 03/08/20 06:15 36.8 C 101 H 18 165/77 H 98 Transfer of Care Handoff Completed per policy Notes Mental Status: alert / awake / arousable and participated in evaluation Nausea / Vomiting: adequately controlled Pain: adequately controlled Airway Patency, RR, SpO2: stable & adequate BP & HR: stable & adequate Hydration State: stable & adequate Anesthetic Complications: no major complications apparent and Pt Satisfied with anesthetic care
[2020-03-08] MEDS: FOLIC ACID 1 MG in SYRINGE 9.8 ML IV SCH (12:25)
[2020-03-08] MEDS: THIAMINE HCL 100 MG in SYRINGE 9 ML IV SCH (12:26)
[2020-03-08] MEDS: methIMAzole 5 MG TABLET PO SCH (12:27)
[2020-03-08 14:28] LABS: Hematocrit (blood only) 24.7 % (42-52); Hemoglobin 7.9 g/dL (14.0-18.0)
--- NOTE | 2020-03-08 14:52 | Electrocardiogram Report ---
Test Reason : Blood Pressure : / mmHG Vent. Rate : 076 BPM Atrial Rate : 076 BPM P-R Int : 162 ms QRS Dur : 104 ms QT Int : 364 ms P-R-T Axes : 039 -22 044 degrees QTc Int : 409 ms Normal sinus rhythm Incomplete right bundle branch block Borderline ECG When compared with ECG of 12-NOV-2012 11:05, No significant change was found Confirmed by Nash Arriaza ([id number]) on 03/08/2020 2:51:46 PM Referred By: REFERRED SELF Confirmed By:Eduin Arriaza
[2020-03-08 16:04] LABS: Appearance Urine Clear (Clear); Bilirubin Urine Negative (Negative); Blood Urine Negative (Negative); Color Urine Yellow; Glucose Urine UA Negative (Negative); Ketones Urine Negative (Negative); Leukocyte Esterase Urine Negative (Negative); Nitrite Urine Negative (Negative); Protein Urine Negative (Negative); Specific Gravity Urine 1.011 (1.000-1.030); Urobilinogen Urine Negative (Negative); pH Urine 7.5 (4.5-7.5)
[2020-03-08] MEDS: GABAPENTIN 600 MG TAB PO SCH ×2 (17:39→21:09)
[2020-03-08] MEDS ORDERED: FLUTICASONE FUROATE 100MCG 14 PUFFS/INHALER INH SCH (21:00)
[2020-03-08] MEDS ORDERED: FLUTICASONE PROPIONATE NA SPR 16 GM BTL SCH (21:00)
[2020-03-08] MEDS: diazePAM 5 MG TABLET PO SCH (21:09)
[2020-03-09] MEDS ORDERED: ACETAMINOPHEN 325 MG TAB PO PRN (05:15)
[2020-03-09] MEDS ORDERED: ACETAMINOPHEN 325 MG TAB ONE (05:17)
[2020-03-09] MEDS ORDERED: GABAPENTIN 600 MG TAB PO SCH (06:00)
[2020-03-09 07:00] LABS: Hematocrit (blood only) 24.5 % (42-52); Hemoglobin 7.7 g/dL (14.0-18.0); Mean Corpuscular Hemoglobin 26.8 pg (25-34); Mean Corpuscular Hgb Conc 31.4 g/dL (32-36); Mean Corpuscular Volume 85.4 fL (80-100); Mean Platelet Volume 9.6 fL (7.4-10.4); Platelet Count 221 K/uL (130-400); RDW Coefficient of Variation 15.2 % (11.5-14.5); RDW Standard Deviation 47.3 fL (36.4-46.3); Red Blood Count 2.87 M/uL (4.7-6.1)
[2020-03-09 07:28] LABS: Calcium 8.1 mg/dl (8.5-10.1); Creatinine Clr Calc Pharmacy 59.3 ml/min; Est GFR (African American) 59.8; Est GFR (Non-African American) 51.6; Potassium 4.2 mmol/L (3.5-5.1)
[2020-03-09] MEDS ORDERED: oxyCODONE HCL IR 5 MG TAB (IMMEDIATE RELEASE) PO PRN (07:33)
[2020-03-09] MEDS: FOLIC ACID 1 MG in SYRINGE 9.8 ML IV SCH (07:49)
[2020-03-09] MEDS: THIAMINE HCL 100 MG in SYRINGE 9 ML IV SCH (07:49)
[2020-03-09] MEDS: ASPIRIN 81 MG ECTAB PO SCH (07:50)
[2020-03-09] MEDS: methIMAzole 5 MG TABLET PO SCH (07:50)
[2020-03-09] MEDS: MULTIVITAMIN TAB PO SCH (07:51)
[2020-03-09] MEDS ORDERED: IRON SUCROSE 200 MG in 0.9 % SODIUM CHLORIDE 100 ML IV ONE (08:00)
[2020-03-09] MEDS: diazePAM 5 MG TABLET PO SCH (08:57)
[2020-03-09] MEDS: INSULIN ASPART 100 UNITS/ML 3 ML PEN SC SCH ×2 (08:58→12:47)
[2020-03-09] MEDS ORDERED: hydroCHLOROthiazide 25 MG TAB PO SCH (09:00)
[2020-03-09] MEDS ORDERED: PANTOprazole 40 MG TAB PO SCH (09:00)
[2020-03-09] MEDS ORDERED: CYANOCOBALAMIN 500 MCG TABLET (VITAMIN B-12) PO SCH (09:00)
[2020-03-09] MEDS ORDERED: OLMESARTAN MEDOXOMIL 20 MG TAB PO SCH (09:00)
--- NOTE | 2020-03-09 11:30 | Electrocardiogram Report ---
Test Reason : Blood Pressure : / mmHG Vent. Rate : 069 BPM Atrial Rate : 069 BPM P-R Int : 176 ms QRS Dur : 102 ms QT Int : 372 ms P-R-T Axes : 043 -11 049 degrees QTc Int : 398 ms Normal sinus rhythm Poor R wave progression, consider anterior NE vs. lead placement vs. LVH When compared with ECG of 08-MAR-2020 06:31, No significant change was found Confirmed by Nash Arriaza ([id number]) on 03/09/2020 11:30:34 AM Referred By: REFERRED SELF Confirmed By:Eduin Arriaza
[2020-03-09 11:44] VITALS: BP 137/79; PULSE 69; TEMP 97.7; O2SAT 95
--- NOTE | 2020-03-09 16:23 | Discharge Summary ---
Date of Service March 09, 2020 Admission HPI Per Admitting Provider Tyrese Rios presented to the ER today with complaints of fatigue and a low Hemoglobin found on lab testing via Dr. Jeffries's office. He states that approximately 5 years ago he underwent a "major workup" for a prior GI bleed. He states that his workup at that time consisted of "multiple endoscopies" including a capsule endoscopy. No source of bleeding was found, and he was placed on Iron supplementation. His Hgb responded and was in the 14 range for years. He states that approximately 1 month ago he developed dyspnea on exertion as well as fatigue. He had a Hgb checked 2 weeks ago which was 9.6. He subsequently had dark stools and had a repeat Hgb yesterday at Dr. Jeffries's office, and it was noted to be 6.6. He was subsequently told to report to the ER. Upon arrival his Hgb was confirmed to be 6.6. Upon arrival to the ER, he was noted to be hemodynamically stable, he was transfused 2u PRBC was started on a protonix gtt and was subsequently admitted. At the time I saw the patient, he was feeling slightly improved. He denies any abdominal pain, fevers, chills, nausea, vomiting, hematemesis, or hematochezia. He notes dark stools, but no tarry stools. He takes aspirin therapy daily, but no other anticoagulation/antiplatelet therapy. He denies any further complaints at this time. Principal Diagnosis acute blood loss anemia iron deficiency anemia Discharge Exam The patient appeared well Vital signs as documented. Lungs are clear to auscultation and appear unlabored Cardiac exam, Rhythm is regular.. No murmurs, rubs or gallops. Abdominal exam reveals normal bowel sounds, soft non tender, no masses Extremities are nonedematous and both pedal pulses are normal. Neurologic exam is alert and oriented, no focal loss of strength or sensation Skin is without bruises or rashes Psychologically is without concerns for anxiety or depression. Discharge Data Allergies Allergy/AdvReac Type Severity Reaction Status Date / Time No Known Drug Allergies Allergy Verified 02/21/20 08:40 Consultations 03/08/20 07:28 ED Decision to Admit Stat 03/08/20 09:05 Consult Case Management - Discharge Planning Routine Consult Gastroenterology Stat Procedures Performed Operation Date: 03/08/20 16:30 Actual Procedures p EGD Biopsy Cytology(Not Applicable) - Viviana Lofton DO Hospital Course (1) Anemia: 74 year old male admitted through the ED w/ abnormal labs, dark stools. hgb 6. Notes GI bleed in past, obscure per pt. He uses ASA daily, Naproxen every other day. Vitals stable. DDX discussed: concern for UGI, PUD etc. EGD performed 03/08/2020 Dr. Perez impressionesophageal plaques were found suspicious for candidiasis biopsied, normal stomach, normal duodenum. Recommend colonoscopy in 1 to 2 weeks. Patient augmented hemoglobin with transfusion 7.9 iron level was found low at 19 he is given a dose of Venofer. Patient is recommended to increase his dietary intake of iron. We will check a CBC and reticulocyte count in 1 week and a follow-up his primary care provider. Patient is seen both gastroenterology groups in the past uses provider to help determine the best group to follow with in the future. In the distant past he did have capsule enteroscopy without location of bleeding source. We will proceed with colonoscopy at this time and then consider further evaluation based upon those results. Given the possibility of Cathy seen on endoscopy consideration for malabsorption of iron could be undertaken however given with his reticulocyte count being present he likely does still support acute blood loss anemia from a source of bleeding. He is hemodynamically stable during his hospital stay. Total Time Total Time Spent Total Time Spent (In Minutes): It required greater than 30 minutes to prepare this patient for discharge Discharge Plan Discharge Items Patient Disposition: Home - Self-Care Reason For Visit: ANEMIA Discharge Diagnosis: symptomatic anemia iron deficiency anemia acute blood loss anemia Activity: Per Instructions section Activity Comment: slowly increase activity Non-emergency contact: Primary Care Provider Call non-emergency contact if: you have any medication questions and your symptoms worsen Follow-up/Referrals: Lazaro El DO [Physician] - (We will call you on Monday 03/13 with your appt date and time. ) Migdalia Jeffries MD [Primary Care Provider] - 03/14/20 9:20 am (You have an appt with Mitchel on Tuesday 03/14 @ 0920. Please arrive 15 minutes prior to your appt. It is important that you keep this appt if this appt does not fit into your schedule please call [phone] to reschedule. ) Diet: Regular Ambulatory Orders: Basic Metabolic Panel (Routine) Timeframe: 1 Week Location: Determined by Patient Ordered By: Pipo Leblanc Complete Blood Count with Diff (Routine) Timeframe: 1 Week Location: Determined by Patient Ordered By: Pipo Leblanc Iron (Routine) Timeframe: 1 Week Location: Determined by Patient Ordered By: Pipo Leblanc Retic Comp Profile (Routine) Timeframe: 1 Week Location: Determined by Patient Ordered By: Pipo Leblanc Addtl Attending Provider Instructions: please have blood work next week hold your aspirin for one week double your vitamins until you are rechecked Pending Studies at Discharge: No Stand-Alone Forms: My [facility] [employer], Smoking Cessation Medications and DC Order Prescriptions: Continued mometasone 220 mcg/ actuation (14) aerosol powdr breath activated 1 inh inhalation QPM Qty: 3 RF: 3 metformin 1,000 mg tablet 1,000 mg PO BID Qty: 180 RF: 1 diazepam 5 mg tablet 2.5 - 5 mg PO DAILY Qty: 30 RF: 0 fluticasone propionate 50 mcg/actuation spray,suspension 2 sprays intranasal QPM Qty: 3 RF: 0 thiamine HCl (vitamin B1) 50 mg tablet 50 mg PO WEEKLY RF: 0 cyanocobalamin (vitamin B-12) 1,000 mcg tablet 1,000 mcg PO WEEKLY RF: 0 cholecalciferol (vitamin D3) 1,000 unit capsule 1,000 units PO .COMPLEX RF: 0 vitamin E (dl, acetate) 400 unit capsule 400 units PO WEEKLY RF: 0 multivitamin [Daily Multi-Vitamin] Tablet 1 tab PO DAILY RF: 0 methimazole 5 mg tablet 5 mg PO DAILY Qty: 90 RF: 3 olmesartan-hydrochlorothiazide 20-12.5 mg tablet 0.5 tab PO Q OTHER DAY RF: 0 diclofenac sodium 1 % gel 4 g topical QID PRN (Reason: pain) Qty: 100 RF: 0 aspirin [Aspirin Low Dose] 81 mg Tablet,Delayed Release (Dr/Ec) 81 mg PO DAILY RF: 0 Discontinued aspirin 81 mg tablet 81 mg PO DAILY RF: 0 No Action (DME) FreeStyle Marcio 14 Day [place] Misc See Rx Instructions [id number] .MEDSUPPLY Qty: 1 RF: 0 (DME) FreeStyle Marcio 14 Day Sensor Kit See Rx Instructions .ROUTE .MEDSUPPLY Qty: 2 RF: 11 (DME) lancets [OneTouch Delica Lancets] 33 gauge misc See Dose Instructions .ROUTE .MEDSUPPLY Qty: 100 RF: 0 (DME) OneTouch Ultra Blue Test Strip strip See Dose Instructions .ROUTE .MEDSUPPLY Qty: 10 RF: 0 Discharge Orders: Discharge Order (Routine); Ordered 03/09/20 Ordered By: Pipo Leblanc Admission Data Admit Date/Time: 03/08/20 07:38 Attending Provider: Pipo Leblanc Admit Provider: Pipo Leblanc Primary Care Provider: Migdalia Jeffries Other Providers: Pipo Leblanc ; Lazaro El Other Interventions: Discharge Summary Assessment (RN) Last Done: 03/09/20 11:43 Coding Level of Care Code D/C Day Management >30 mins Diagnoses Anemia D64.9
[2020-03-10] MEDS ORDERED: GABAPENTIN 600 MG TAB PO SCH (10:00)
[2020-03-11] MEDS ORDERED: GABAPENTIN 600 MG TAB PO SCH (22:00)
[2020-03-13] MEDS ORDERED: THIAMINE HCL 50 MG TABLET PO SCH (09:00)
[2020-03-14] MEDS ORDERED: CHOLECALCIFEROL 1,000 UNITS 25 MCG TAB PO SCH (09:00)
== END 2020-03-09 14:05 | disposition home or self-care (01) ==
LOC: ED 06:12 → INTOOBSV 07:38 → 2N 07:38

== ENCOUNTER 2021-12-17 05:58 | Inpatient (IN) ==
--- NOTE | 2021-12-04 09:03 | PAT Medication Instructions ---
Medication Instructions Date of Service December 04, 2021 Home Medications Medication Instructions Recorded pen needle, diabetic 31 gauge x #100 ea 03/30/21 3/16" (BD Ultra-Fine Mini Pen Needle) blood sugar diagnostic #100 ea 07/11/21 metformin 1,000 mg tablet 1,000 mg PO BID #180 tabs 07/13/21 FreeStyle Marcio 14 Day Sensor #2 ea 10/19/21 (flash glucose sensor) lancets 33 gauge (OneTouch Delica Lancets) mometasone 220 mcg/actuation(14 doses) breath activated powder inhaler 1 inh inhalation HS PRN pen needle, diabetic 31 gauge x 3/16" (BD Ultra-Fine Mini Pen Needle) blood sugar diagnostic metformin 1,000 mg tablet 1,000 mg PO BID cyanocobalamin (vitamin B-12) 1,000 mcg tablet 1,000 mcg PO UD insulin glargine 100 unit/mL (3 mL) subcutaneous pen (Lantus Solostar U-100 Insulin) 18 unit subcut QAM FreeStyle Marcio 14 Day Sensor (flash glucose sensor) insulin lispro 100 unit/mL subcutaneous pen (Humalog KwikPen (U-100) Insulin) 6 unit subcut QAM cholecalciferol (vitamin D3) 10 mcg (400 unit) capsule (Vitamin D3) 10 mcg PO UD diazepam 5 mg tablet 2.5 - 5 mg PO QAM ferrous sulfate 65 mg PO HS fluticasone propionate 50 mcg/actuation nasal spray,suspension 2 spray intranasal HS PRN multivit with minerals-iron 18 mg-folic ac 400 mcg-vit K 25 mcg tablet (One Daily Women's) 1 tab PO Q2D ifzavkws-[id number] 5 mg-zeaxanth 1 mg-bilberry 7.5 mg-herbal capsule (Macular Health Formula) 1 cap PO Q3D olmesartan 40 mg-hydrochlorothiazide 25 mg tablet 1 tab PO QAM omeprazole magnesium 20 mg tablet,delayed release (Prilosec OTC) 20 mg PO QAM vitamin E 400 unit tablet 45 mg PO UD STOP taking 2 weeks before surgery [id number] 5 mg-zeaxanth 1 mg-bilberry 7.5 mg-herbal capsule (Macular Health Formula) 1 cap PO Q3D vitamin E 400 unit tablet 45 mg PO UD DO NOT take the morning of surgery metformin 1,000 mg tablet 1,000 mg PO BID cyanocobalamin (vitamin B-12) 1,000 mcg tablet 1,000 mcg PO UD insulin lispro 100 unit/mL subcutaneous pen (Humalog KwikPen (U-100) Insulin) 6 unit subcut QAM cholecalciferol (vitamin D3) 10 mcg (400 unit) capsule (Vitamin D3) 10 mcg PO UD multivit with minerals-iron 18 mg-folic ac 400 mcg-vit K 25 mcg tablet (One Daily Women's) 1 tab PO Q2D olmesartan 40 mg-hydrochlorothiazide 25 mg tablet 1 tab PO QAM Take morning of surgery With a small sip of water, OTHERWISE NOTHING TO EAT OR DRINK AFTER MIDNIGHT: diazepam 5 mg tablet 2.5 - 5 mg PO QAM omeprazole magnesium 20 mg tablet,delayed release (Prilosec OTC) 20 mg PO QAM Take evening before surgery mometasone 220 mcg/actuation(14 doses) breath activated powder inhaler 1 inh inhalation HS PRN(if needed) metformin 1,000 mg tablet 1,000 mg PO BID ferrous sulfate 65 mg PO HS fluticasone propionate 50 mcg/actuation nasal spray,suspension 2 spray intranasal HS PRN(if needed) Insulin Dependent Diabetic Patients * Test your blood sugar the morning of surgery * If Blood Sugar is GREATER THAN 150, take HALF of your regular dose of: insulin glargine 100 unit/mL (3 mL) subcutaneous pen (Lantus Solostar U-100 Insulin)-9 unit subcut QAM. * If Blood Sugar is LESS THAN 150, DO NOT TAKE ANY: insulin glargine 100 unit/mL (3 mL) subcutaneous pen (Lantus Solostar U-100 Insulin). Other Notes If you have any questions please call us at [phone] or [phone] or [phone] or [phone]
--- NOTE | 2021-12-11 13:37 | Anesthesiology Consultation ---
Date of Service December 11, 2021 Assessment & Plan (1) Encounter for pre-operative examination: - COVID screening: Per assessment on 12/11: No known COVID-19 positive contacts or current COVID-19 related symptoms. Travel screen negative. Patient vaccinated. At surgeon discretion if preop Covid testing being done. - Check BSG AM DOS - Hyponatremia: Sodium on preop labs done 12/11 were 129. No recent comparison labs but available [facility] labs from [id number] do not show significant hyponatremia but intermittent low 130s noted. Reviewed with Dr. Aviles. He recommends recheck sodium level AM DOS. Chart Review Chart Review: Acceptable Risk for Surgery (pending sodium level AM DOS) and Patient seen in Pre Admission Testing Teaching & Discussion Pre-Anesthesia Teaching/Discussion Notes: Instructed NPO after midnight before surgery,except medications with 15 cc of water. Medication instructions provided according to the PAT guidelines. History Surgery Operation Date: 12/17/21 08:00 Proposed Procedures p Percutaneous Endovascular Abdominal Aneurysm Repair - Jonathan Santos MD Height/Weight Height: 6 ft 2 in Weight: 100.7 kg Allergies Allergy/AdvReac Type Severity Reaction Status Date / Time No Known Drug Allergies Allergy Verified 11/28/21 10:45 Medications Home Medications Medication Instructions Recorded Confirmed Last Taken lancets 33 gauge (OneTouch Delica #100 ea 03/31/20 11/13/21 Unknown Lancets) mometasone 220 mcg/actuation(14 1 inh inhalation HS PRN Shortness 06/16/20 11/28/21 Unknown doses) breath activated powder Of Breath inhaler pen needle, diabetic 31 gauge x #100 ea 03/30/21 11/13/21 Unknown 3/16" (BD Ultra-Fine Mini Pen Needle) blood sugar diagnostic #100 ea 07/11/21 11/13/21 Unknown metformin 1,000 mg tablet 1,000 mg PO BID #180 tabs 07/13/21 11/28/21 Unknown cyanocobalamin (vitamin B-12) 1,000 mcg PO UD 08/21/21 11/28/21 Unknown 1,000 mcg tablet insulin glargine 100 unit/mL (3 18 unit subcut QAM 08/21/21 11/28/21 Unknown mL) subcutaneous pen (Lantus Solostar U-100 Insulin) FreeStyle Marcio 14 Day Sensor #2 ea 10/19/21 11/13/21 Unknown (flash glucose sensor) insulin lispro 100 unit/mL 6 unit subcut QAM 11/13/21 11/28/21 Unknown subcutaneous pen (Humalog KwikPen (U-100) Insulin) cholecalciferol (vitamin D3) 10 10 mcg PO UD 11/28/21 11/28/21 Unknown mcg (400 unit) capsule (Vitamin D3) diazepam 5 mg tablet 2.5 - 5 mg PO QAM 11/28/21 11/28/21 Unknown ferrous sulfate 65 mg PO HS 11/28/21 11/28/21 Unknown fluticasone propionate 50 2 spray intranasal HS PRN allergy 11/28/21 11/28/21 Unknown mcg/actuation nasal symptoms spray,suspension multivit with minerals-iron 18 1 tab PO Q2D 11/28/21 11/28/21 Unknown mg-folic ac 400 mcg-vit K 25 mcg tablet (One Daily Women's) daxuzbmc-jiv-rvopgu 5 mg-zeaxanth 1 cap PO Q3D 11/28/21 11/28/21 Unknown 1 mg-bilberry 7.5 mg-herbal capsule (Macular Health Formula) olmesartan 40 1 tab PO QAM 11/28/21 11/28/21 Unknown mg-hydrochlorothiazide 25 mg tablet omeprazole magnesium 20 mg 20 mg PO QAM 11/28/21 11/28/21 Unknown tablet,delayed release (Prilosec OTC) vitamin E 400 unit tablet 45 mg PO UD 11/28/21 11/28/21 Unknown Past Medical History Medical History Allergic rhinitis Anxiety Aortic aneurysm Distal infrarenal abdominal aorta measuring approximately 5.6 x 4.1 cm per 11/20/[address] 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 Hx MRSA infection Remote hx (toes, several years ago) Hypertension Hyperthyroidism Remote hx, no issues x years per pt Most recent thyroid labs euthyroid Personal history of diabetic foot ulcer "Well healed" per pt, wears special insoles to prevent Rheumatoid arthritis involving both hands with positive rheumatoid factor Pt denies Stage 2 chronic kidney disease Venous insufficiency Per records, pt denies Exercise / Class Metabolic Activity III < 4 Walking/Shop/Light housework Past Family History Family History Father Myocardial infarction Grandfather Myocardial infarction Denies family history of Ovarian cancer Prostate cancer Breast cancer Colorectal cancer Past Surgical History Surgical History H/O esophagogastroduodenoscopy History of appendectomy History of Mohs micrographic surgery for skin cancer SCC (chest) Hx of cataract extraction R/L Hx of colonoscopy Hx of hand surgery Right Hx of tonsillectomy [place] teeth extracted Past Anesthesia History No Hx of Anesthesia Complications and No Family Hx of Anesthesia Complications History of PONV No Hx of PONV and No Hx of Motion Sickness Social History Smoking Status: Former smoker tobacco type: cigarettes Do You Dip or Chew Tobacco: No Smoking End Date: 1991 Hx Alcohol Use: Yes Alcohol type: wine and hard liquor alcohol intake frequency: 0-2 drinks per day (2 shots/day) Hx Substance Use: No substance use type: does not use Review of Systems Patient denies chest pain, shortness of breath, fever, chills, cough, wheezing, palpitations. Physical Exam Vital Signs VITALS BP 147/83 P 72 TEMP 98.5 SP02 96%RA RESP 16 PHYSICAL Full cervical extension range of motion. Full TMJ range of motion. TMD 3.5 finger breaths Mallampati Score 2 Dentition: intact, + implants Lungs: clear throughout to auscultation Cardiac: regular rate and rhythm, no murmurs noted Spine: normal Carotid arteries: negative bruit Extremities: no edema Lab Results Anesthesia Preop Results Results Anesthesia Widget: WBC 7.87 K/ul (4.8-10.8) 12/11/21 Hgb 13.8 g/dl (14.0-18.0) L 12/11/21 Hct 39.2 % (40.1-51.0) L 12/11/21 Plt 242 K/uL (130-400) 12/11/21 Na 129 mmol/L (136-145) L 12/11/21 K 3.6 mmol/L (3.5-5.1) 12/11/21 Cl 93 mmol/L (98-107) L 12/11/21 CO2 27 mmol/L (21-32) 12/11/21 BUN 17 mg/dl (6-23) 12/11/21 Creat 1.18 mg/dl (0.6-1.4) 12/11/21 Glucose Level 151 mg/dl (70-99(Fasting)) H 12/11/21 PT 11.3 Seconds (9.0-12.0) 12/11/21 PTT 31.3 Seconds (21.0-31.0) H 12/11/21 INR 1.1 (0.9-1.1) 12/11/21 Blood Type O Positive 12/11/21 Antibody Screen NEGATIVE 12/11/21 Testing Laboratory Results 09/12/21 HGBA1C 5.5% 04/26/21 TSH 1.770 06/14/20 FREE T4 1.00 Electrocardiogram Date: 12/11/21 NSR at 68bpm. LAFB. Chest X-Ray Date: 12/11/21 FINDINGS: Cardiomediastinal and hilar silhouettes are within normal limits. No pneumothorax, pleural effusion, airspace consolidation or overt pulmonary edema. Atherosclerosis of the aorta. Degenerative changes of the shoulders and spine. Lower thoracic levoscoliosis. IMPRESSION: No acute process. Echocardiogram Date: 09/14/21 EF 55-60%. No regional motion abnormality. Moderate concentric LVH. Mild AR. Mild MR. Moderate aortic stenosis (SONIA 1.5 cm, MG 20.4 mmHg). Other Testing Abd/Pelvis CTA (11/20/21) No acute intra-abdominal or intrapelvic abnormality. Atherosclerotic vascular disease with unchanged aneurysmal dilation of the distal infrarenal abdominal aorta measuring approximately 5.6 x 4.1 cm. No dissection or evidence of aneurysm rupture. There are two unchanged cystic pancreatic lesions measuring up to 2.5 cm within the pancreatic tail suggestive of sidebranch IPMN's versus mucinous cystic lesions. Colonic diverticulosis. Mild wall thickening of the sigmoid colon and rectum, likely secondary to partial distention. A nonspecific proctocolitis is considered less likely. COVID-19 Risk Screen Screening Information COVID-19 Screen Date: 12/11/21 Exposure 21 Days Family/Household +COVID Last 21 Days: No Exposure 10 Days Any COVID Exposure Last 10 Days: No Symptoms Last 10 Days Experienced COVID Sx Last 10 Days: No + COVID 0-90 Days COVID + in Last 0-90 Days: No
[2021-12-17] MEDS ORDERED: ceFAZolin 2000MG 2,000 MG/15 ML SYR IV SCH (06:00)
[2021-12-17] MEDS ORDERED: LACTATED RINGER'S 1,000 ML IV SCH (06:00)
[2021-12-17] MEDS ORDERED: HYDROmorphone INJ 1 MG/ML SYRINGE IV PRN (06:35)
[2021-12-17] MEDS ORDERED: ATROPINE SULFATE 0.1 MG/ML 10ML SYR IV PRN (06:35)
[2021-12-17] MEDS ORDERED: fentaNYL citrate 100 MCG/2 ML VIAL IV PRN (06:35)
[2021-12-17] MEDS ORDERED: ONDANSETRON INJ 2 MG/ML 2 ML VIAL IV PRN (06:35)
[2021-12-17] MEDS ORDERED: ePHEDrine sulfate 50 MG/ML AMP IV PRN (06:35)
[2021-12-17] MEDS ORDERED: ONDANSETRON INJ 2 MG/ML 2 ML VIAL ONE (06:48)
[2021-12-17] MEDS ORDERED: LIDOCAINE 2% MPF LOCAL 5 ML VIAL INFIL ONE (06:48)
[2021-12-17] MEDS ORDERED: fentaNYL citrate 100 MCG/2 ML VIAL ONE (06:48)
[2021-12-17] MEDS ORDERED: PROPOFOL IV EMULSION 10 MG/ML 20 ML VIAL IV ONE ×2 (06:48→09:18)
[2021-12-17] MEDS ORDERED: ROCURONIUM BROMIDE 10 MG/ML 5 ML VIAL IV ONE (06:48)
[2021-12-17] MEDS ORDERED: DEXAMETHASONE SOD INJ 4 MG/ML VIAL ONE (06:48)
[2021-12-17] MEDS ORDERED: HEPARIN SOD (PORCINE) 1000 UNIT/ML ONE (07:01)
[2021-12-17] MEDS ORDERED: PHENYLEPHRINE HCL 10 MG/ML VIAL ONE (07:01)
[2021-12-17] MEDS ORDERED: EPINEPHrine INJ 1 MG/ML AMP ONE (07:05)
[2021-12-17] MEDS ORDERED: HEPARIN SOD (PORCINE) 5,000 UNITS/ML VIAL ONE (07:05)
[2021-12-17] MEDS ORDERED: BUPIVACAINE 0.5 % 5 MG/1 ML MPF 30ML VIAL ONE (07:06)
[2021-12-17] MEDS ORDERED: LIDOCAINE 1% LOCAL 20 ML VIAL ONE (07:06)
[2021-12-17 07:11] LABS: BUN Creatinine Ratio 10.4 (10-20); Calcium 9.5 mg/dl (8.5-10.1); Creatinine Clr Calc Pharmacy 66.8 ml/min; Est GFR (African American) 70.3 ml/min; Est GFR (Non-African American) 60.6 ml/min; Potassium 3.5 mmol/L (3.5-5.1)
--- NOTE | 2021-12-17 07:40 | History & Physical Report ---
Date of Service December 17, 2021 Assessment & Plan (1) AAA (abdominal aortic aneurysm) without rupture: Plan: Patient for a PEVAR of his AAA. I have discussed the risks options and benefits of the procedure with the patient. The patient understands the risks options and benefits and agrees to the procedure. History of Present Illness Chief Complaint: AAA Primary Care Provider: Migdalia Jeffries MD Mr Rios is a 76-year-old gentleman who we were seen for abdominal aortic aneurysm. His aneurysm has grown to 5.6 cm in size. He has no complaints of abdominal discomfort at this point. He has no complaints of claudication. He underwent a CT angiogram to better define the anatomy of the aneurysm. Allergies Allergy/AdvReac Type Severity Reaction Status Date / Time No Known Drug Allergies Allergy Verified 11/28/21 10:45 Home Medications Medication Instructions Recorded Confirmed Type lancets 33 gauge (OneTouch Delica #100 ea 03/31/20 11/13/21 History Lancets) mometasone 220 mcg/actuation(14 1 inh inhalation HS PRN Shortness 06/16/20 11/28/21 History doses) breath activated powder Of Breath inhaler pen needle, diabetic 31 gauge x #100 ea 03/30/21 11/13/21 Rx 3/16" (BD Ultra-Fine Mini Pen Needle) blood sugar diagnostic #100 ea 07/11/21 11/13/21 Rx metformin 1,000 mg tablet 1,000 mg PO BID #180 tabs 07/13/21 12/17/21 Rx cyanocobalamin (vitamin B-12) 1,000 mcg PO UD 08/21/21 12/17/21 History 1,000 mcg tablet insulin glargine 100 unit/mL (3 18 unit subcut QAM 08/21/21 12/17/21 History mL) subcutaneous pen (Lantus Solostar U-100 Insulin) FreeStyle Marcio 14 Day Sensor #2 ea 10/19/21 11/13/21 Rx (flash glucose sensor) insulin lispro 100 unit/mL 6 unit subcut QAM 11/13/21 12/17/21 History subcutaneous pen (Humalog KwikPen (U-100) Insulin) cholecalciferol (vitamin D3) 10 10 mcg PO UD 11/28/21 12/17/21 History mcg (400 unit) capsule (Vitamin D3) diazepam 5 mg tablet 2.5 - 5 mg PO QAM 11/28/21 12/17/21 History ferrous sulfate 65 mg PO HS 11/28/21 12/17/21 History fluticasone propionate 50 2 spray intranasal HS PRN allergy 11/28/21 12/17/21 History mcg/actuation nasal symptoms spray,suspension multivit with minerals-iron 18 1 tab PO Q2D 11/28/21 12/17/21 History mg-folic ac 400 mcg-vit K 25 mcg tablet (One Daily Women's) srtnuivf-afq-eislsc 5 mg-zeaxanth 1 cap PO Q3D 11/28/21 12/17/21 History 1 mg-bilberry 7.5 mg-herbal capsule (Macular Health Formula) olmesartan 40 1 tab PO QAM 11/28/21 12/17/21 History mg-hydrochlorothiazide 25 mg tablet omeprazole magnesium 20 mg 20 mg PO QAM 11/28/21 12/17/21 History tablet,delayed release (Prilosec OTC) vitamin E 400 unit tablet 45 mg PO UD 11/28/21 12/17/21 History Past Med/Surg History Medical History Allergic rhinitis Anxiety Aortic aneurysm Distal infrarenal abdominal aorta measuring approximately 5.6 x 4.1 cm per 11/20/[address] 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 Hx MRSA infection Remote hx (toes, several years ago) Hypertension Hyperthyroidism Remote hx, no issues x years per pt Most recent thyroid labs euthyroid Personal history of diabetic foot ulcer "Well healed" per pt, wears special insoles to prevent Rheumatoid arthritis involving both hands with positive rheumatoid factor Pt denies Stage 2 chronic kidney disease Venous insufficiency Per records, pt denies Surgical History H/O esophagogastroduodenoscopy History of appendectomy History of Mohs micrographic surgery for skin cancer SCC (chest) Hx of cataract extraction R/L Hx of colonoscopy Hx of hand surgery Right Hx of tonsillectomy [place] teeth extracted Family History Father Myocardial infarction Grandfather Myocardial infarction Denies family history of Ovarian cancer Prostate cancer Breast cancer Colorectal cancer Social History Smoking Status: Former smoker Tobacco Type: Cigarettes Age Started Using Tobacco: 16; Age Quit Using Tobacco: 56; Smoking End Date: Quit 1991; Second Hand Exposure: No; Do You Dip or Chew Tobacco: No; Tobacco Cessation Education Requested by Patient: No Hx Alcohol Use: Yes Alcohol type: hard liquor and other Alcohol Intake Frequency: 4 or More x per/Week Alcohol Intake Frequency Comment: mixed drink daily in late afternoon Hx Substance Use: No Preferred Language: Bolivian Communication Ability: Effective Visual Impairment: Partially Limited Hearing Ability: Use of Hearing Aid Spar Finisher Required: No Beliefs That Will Affect Care: None marital status: Current Living Situation: Spouse current occupational status: retired How many Children do You have: 1 Other Information That Helps Us Care for You: No Feels Safe at Home: Yes Safety Concerns: Feels Safe At This Time Childhood Exposure to Second-Hand Smoke: Yes Dental Care, Regularly: Yes Physical Activity Frequency: 5-6 Times per Week Seatbelt Use: always Sunscreen Use: No Assistive Devices: Contacts Assistive Devices Comment: contact-lt eye only Review of Systems All systems reviewed & are unremarkable except as noted in HPI & below Physical Exam Constitutional: WD/WN, vitals as above Respiratory: normal respiratory effort, lungs clear to auscultation Cardiovascular: RRR, no murmur, no edema Vessels: abdominal aortic pulse present (AAA) and femoral pulses present Extremities: normal capillary refill Gastrointestinal (Abdomen): normal bowel sounds, soft, nontender, no hepatosplenomegaly Musculoskeletal: no cyanosis or clubbing, extremities motor strength 5/5 Neurologic: CN's II-XI intact bilaterally and moves all extremities Psychiatric: Orientation: alert and oriented x 3 Results & Data ([facility]) Vital Signs (Past 12 Hours) Vital Signs Temp Pulse Resp BP BP Pulse Ox O2 Del Method 12/17/21 06:27 36.8 C 61 16 186/78 H 172/89 H 99 Room Air Diagnostic Findings CT angiogram shows a 5.6 cm abdominal arctic aneurysm. It appears to be more saccular in shape. There is plaque extending into the midportion of the aneurysm. This is worrisome for a contained rupture. He is amenable to an endovascular repair for this aneurysm.
[2021-12-17] MEDS ORDERED: ePHEDrine sulfate 50 MG/ML SYR ONE (08:32)
[2021-12-17] MEDS ORDERED: VISIPAQUE IV PRN (09:09)
[2021-12-17] MEDS ORDERED: SUGAMMADEX SODIUM 200 MG/2 ML VIAL IV ONE (09:14)
[2021-12-17] MEDS ORDERED: ARISTA ABSORBABLE HEMOSTAT 3GM TOP ONE (09:19)
[2021-12-17] MEDS ORDERED: PHARMACY GLYCEMIC MGMT CONSULT PRN (09:21)
[2021-12-17] MEDS ORDERED: LABETALOL HCL IV 5 MG/ML 20ML IV ONE ×2 (09:23)
--- NOTE | 2021-12-17 09:23 | Procedure Note ---
Angiogram Post Procedure Fluoroscopy Time (minutes): 6 Radiation (mGy): 211 Contrast: 90 Post Operative Report Pre & Post Diagnosis Operation Date: 12/17/21 08:00 Pre-Op Diagnosis: Abdominal Aortic Aneurysm Post-Op Diagnosis: Abdominal Aortic Aneurysm I identified the patient and participated in the time-out.: Yes Procedure Operation Date: 12/17/21 08:00 Actual Procedures p Percutaneous Endovascular Abdominal Aneurysm Repair - Jonathan Santos MD Surgeon Jonathan Santos MD Ornamental Plaster Sticker Era,PAC Estimated Blood Loss 10 Findings Consistent with Post-Op Diagnosis Specimens none Anesthesia Type General Complications none Disposition Accompanied Patient To Recovery: No Disposition: Recovery Room Indications This is a 76-year-old gentleman has enlargement of his abdominal aortic aneurysm to over 5 cm in size. Percutaneous endovascular repair was recommended. I have discussed the risks options and benefits of the procedure with the patient. The patient understands the risks options and benefits and agrees to the procedure. Description of Procedure Patient was brought to the OR and placed in supine position. Patient was intubated and general anesthesia was accomplished and an A-line was placed placed. Lua was placed. A safety timeout was performed to identify patient's name, date of and the correct procedure. Abdomen and groins were prepped and draped in sterile fashion. Ultrasound guided percutaneous access of the right groin was performed. The right common femoral artery was patent on ultrasound. The left common femoral artery was punctured. A J-wire was advanced through the needle, the needle was then removed and a skin rosalia was performed using 11 blade. A 5 Croatian sheath was inserted. 2 Perclose devices were deployed at 10 and 2:00 positions. The sutures were secured with Steri- Strips. An 8 Croatian was then placed in the right groin. We turned our attention to the right side and we similarly accessed the left common femoral artery. Same steps were applied and an 8 Croatian sheath was placed in the right groin. Patient was heparinized with 8000 of IV heparin. Through the right groin, we advanced a soft Glidewire followed by a Kumpe catheter. The wire then was exchanged for a stiff Connor wire. Similarly, we placed a Connor wire through the left groin through Kumpe catheter. We then upsized our access with a 12 and 16 Croatian dilators and subsequently to 18 Croatian dry seal sheath on the right. The left groin sheath was then exchanged to a 12 Croatian dry seal sheath. The sheaths were advanced all the way up in the aortic sac. A marker pig was inserted to the left groin. Aortography was performed. The level of the renal arteries were marked on the screen. This showed patency of both renal arteries and a acceptable neck for deployment of the graft. We advanced the device ([place] excluder C3 trunk 28 mm x 14.5 mm x 16 cm) through the right sheath. The shaft of the graft was then deployed. An aortogram was performed. Both renal arteries were visualized just above the top of the deployed graft. Aortogram confirmed good location of the proximal end of the graft. The hooks were then deployed. Cannulation of the gate was then accomplished using an 035 glidewire and a WiNetworkspke catheter. The wire spun easily in the neck of the graft. The 035 Glidewire was removed and a Connor wire was reinserted. A marker pigtail was then inserted over the Maldonado wire. The 12 Croatian sheath was then pulled down into the external iliac and an arteriogram was performed of the left iliac system. This identified the origin of the hypogastric and the left side. We then remove the pigtail. We reinserted a 12 Croatian sheath dilator and advanced the sheath into the gate of the graft. Prior to inserting the contralateral limb we deployed the ipsilateral limb to complete the deployment of the graft. The device was then removed from the right groin. We then inserted an 18 mm x 13.5 contralateral limb. The 12 Croatian sheath was then pulled down to below the level of the contralateral limb. Contralateral limb was then deployed without difficulty. The Q50 balloon was then inserted through the left sheath. The proximal attachment site, the gate and the distal attachment site were ballooned with the Q50 balloon. The balloon was then removed. Was inserted through the right side 18 Croatian sheath and then the distal attachment site of the right limb was then balloon. The balloon was then removed. The pigtail was then inserted through the left side to above the renal arteries. A final arteriogram was then performed which showed no evidence of a type I endoleak. There was 2 type II endoleak seen in the midportion and distal portion of the aortic sac. Graft showed no evidence of narrowing throughout. An 035 Glidewire was then reinserted into the pigtail and the pigtail removed. The 12 Croatian sheath was then pulled from the left groin and the 2 Pro-glide devices were then tied. Good seal was seen with no bleeding noted. The right groin sheath was then also pulled. The 2 pro glides on the right side were then securely tied. No evidence of bleeding was seen on the right side either. Sterile dressings were applied to the wounds.The patient left the operation room in satisfactory condition and tolerated the procedure well. All needle and sponge counts were correct at the end of the procedure. Riya Wang Pac assisted due to lack of resident availability and was necessary for positioning, draping, retraction, wound closure deep layers, subcutaneous tissue, and skin closure and was necessary for assisting with the case. I attest to the content of the Intraoperative Record and any orders documented therein. Any exceptions are noted below.
[2021-12-17 10:11] LABS: Hematocrit (blood only) 34.8 % (40.1-51.0); Hemoglobin 12.6 g/dl (14.0-18.0)
[2021-12-17] MEDS ORDERED: MULTIVITAMIN MIN IRON FA VIT K 18 MG PO SCH (10:37)
[2021-12-17] MEDS ORDERED: NON-FORMULARY MEDICATION (Mv-Mn-Lutein-Zeax-Bilber-Hb277 [Macular Health Formula] 5-1-7.5 PO SCH (10:37)
[2021-12-17] MEDS ORDERED: oxyCODONE/ACETAMINOPHEN 5mg/325mg TAB PO PRN (10:37)
[2021-12-17] MEDS ORDERED: MoRPHine SULFATE 4 MG/ML 1 ML CARP\\VIAL IV PRN (10:37)
[2021-12-17] MEDS ORDERED: FLUTICASONE PROPIONATE NA SPR 16 GM BTL PRN (10:37)
[2021-12-17] MEDS ORDERED: [UNRECOGNIZED DRUG - OTHER] PO SCH (10:37)
[2021-12-17] MEDS ORDERED: IRON PO SCH (10:37)
[2021-12-17] MEDS ORDERED: FLUTICASONE FUROATE 100MCG 14 PUFFS/INHALER INH PRN (10:52)
[2021-12-17] MEDS ORDERED: INFLUENZA VACCINE HIGH DOSE PF 65+ 0.7 ML SYR IM ONE (10:57)
--- NOTE | 2021-12-17 11:12 | Anesthesiology Progress Note ---
Date of Service December 17, 2021 Anesthesia Post Procedure Vital Signs Vital Signs: Temp Pulse Pulse Resp BP BP BP 12/17/21 10:39 36.5 C 65 20 142/65 H 157/59 H 12/17/21 10:10 36.4 C L 62 12 140/70 12/17/21 10:00 62 12 147/75 H 12/17/21 09:50 64 15 151/75 H 12/17/21 09:40 61 14 152/71 H 12/17/21 09:33 37.1 C 72 14 148/79 H 12/17/21 06:27 36.8 C 61 16 186/78 H 172/89 H Pulse Ox O2 Del Method O2 Flow Rate 12/17/21 10:39 95 Room Air 12/17/21 10:10 95 Room Air 12/17/21 10:00 96 Room Air 12/17/21 09:50 100 Oxymask 5 12/17/21 09:40 100 Oxymask 5 12/17/21 09:33 99 Oxymask 5 12/17/21 06:27 99 Room Air Transfer of Care Handoff Completed per policy Notes Mental Status: alert / awake / arousable and participated in evaluation Patient Amnestic to Procedure: Yes Nausea / Vomiting: adequately controlled Pain: adequately controlled Airway Patency, RR, SpO2: stable & adequate BP & HR: stable & adequate Hydration State: stable & adequate Anesthetic Complications: no major complications apparent and Pt Satisfied with anesthetic care
[2021-12-17] MEDS ORDERED: CHOLECALCIFEROL 400 UNITS 10 MCG TAB PO SCH (11:15)
[2021-12-17] MEDS ORDERED: TOCOPHERYL, DL-ALPHA 400 UNITS 180 MG CAP PO SCH (11:15)
[2021-12-17] MEDS ORDERED: DEXTROSE 50% 50 ML SYRINGE IV PRN (11:30)
[2021-12-17] MEDS ORDERED: GLUCOSE 10 TAB/TUBE PO PRN (11:30)
[2021-12-17] MEDS ORDERED: CARBOHYDRATES FOR HYPOGLYCEMIA PO PRN (11:30)
[2021-12-17] MEDS ORDERED: GLUCAGON FOR INJ 1 MG VIAL IM PRN (11:30)
[2021-12-17] MEDS ORDERED: GLUCOSE 40% GEL 15 GM TUBE PO PRN (11:30)
--- NOTE | 2021-12-17 11:36 | Pharmacy Report ---
Pharmacy Glycemic Short Note 2 - Date of Service December 17, 2021 - Glycemic Short BSG Results (Last 24 hours): 12/17/21 12/17/21 12/17/21 06:25 06:29 09:38 Glucose 129 H POC Glucose 115 H 153 H 12/17/21 11:01 Glucose POC Glucose 121 H OUTPATIENT ANTIDIABETIC REGIMEN: * Lantus 18 units SC AM * Humalog 6 units SC AM * Metformin 1000 mg PO BIDM * HbA1c = 5.5% (09/12/21) ASSESSMENT: * 76 yo M admitted postoperatively following a PEVAR by Dr. Santos. Pharmacy has been consulted to assist with the inpatient management of glycemic control. Patient is an insulin-dependent type 2 diabetic as an outpatient. Most recent A1c from September 2021 shows excellent glycemic control. Would have patient monitor for signs/symptoms of hypoglycemia given A1c and discuss reduction in outpatient dosing if this occurs. * Preop BSG was 115 mg/dL. Postop BSG was 121 mg/dL. Dexamethasone was removed from the [employer] but nursing did not document whether it was administered or not. * Will start Novolog based on weight/stress of 1.5. Home Lantus dose will be reduced by almost 50% to prevent hypoglycemia. PLAN FOR INPATIENT GLYCEMIC CONTROL: * Hold outpatient oral diabetes medications * Basal insulin * Lantus 10 units SC AM * Bolus insulin * NovoLog per scale ACHS or Q6hrs while NPO * Goal Range: Low 120 mg/dL - High 150 mg/dL * Correction Factor: 30 mg/dL/unit * Nutritional / Prandial insulin per carb ratio of 1 unit per 10 grams CHO consumed
[2021-12-17] MEDS: LACTATED RINGER'S 1,000 ML IV SCH ×2 (11:42→19:45)
[2021-12-17] MEDS: INSULIN ASPART PER UNIT SC SCH ×3 (11:51→20:44)
[2021-12-17] MEDS: ceFAZolin 2000MG 2,000 MG/15 ML SYR IV SCH ×2 (11:53→19:20)
[2021-12-17] MEDS ORDERED: LANTUS PER UNIT CHARGE SQ ONE (12:00)
--- NOTE | 2021-12-17 12:19 | Critical Care Consultation ---
Date of Consultation December 17, 2021 Assessment & Plan (1) AAA (abdominal aortic aneurysm) without rupture: (2) Diabetes type 2, controlled: (3) Venous insufficiency: (4) Stage 2 chronic kidney disease: (5) Hypertension: Plan Impression: 76-year-old male status post endovascular repair of aortic aneurysm. Hemodynamically stable and doing well postoperatively. Recommendations: 1. The patient will continue to be observed in the ICU for postoperative care. We will continue neurovascular checks and monitor hemodynamics. 2. Hypertension: Continue outpatient antihypertensive regimen. 3. Diabetes: Continue glycemic control. We will add sliding scale insulin if needed. 4. Mild hyponatremia: Continue to trend. Serum creatinine is stable. May be associated with the patient's hydrochlorothiazide and discontinuation may be appropriate if it continues to be problematic. 5. Activity per vascular surgery. 6. Analgesia per vascular surgery. Will observe in the ICU per protocol. Feel free to contact us with questions or concerns in the interim. The above recommendations and plan were discussed with the patient as well as with the critical care nurse at bedside. History of Present Illness Attending Physician: Jonathan Santos MD History of Present Illness Asked by vascular surgery to assist with critical care management of this p atient status post endovascular repair of an abdominal aortic aneurysm. History is obtained from review electronic medical record as well as discussion with the patient. The patient is a 76-year-old male who has been followed in the outpatient setting for an abdominal aortic aneurysm. Most recent scanning demonstrated the aneurysm and increased to 5.6 cm. He was taken to the OR today for endovascular repair. He returns to the ICU hemodynamically stable. He denies chest pain, shortness of breath, or pain in the lower extremities. No abdominal pain. No nausea or vomiting. He has a prior history of chronic kidney disease, diabetes, hypertension, and peripheral neuropathy. Allergies Allergy/AdvReac Type Severity Reaction Status Date / Time No Known Drug Allergies Allergy Verified 11/28/21 10:45 Home Medications Medication Instructions Recorded Confirmed Type lancets 33 gauge (OneTouch Delica #100 ea 03/31/20 11/13/21 History Lancets) mometasone 220 mcg/actuation(14 1 inh inhalation HS PRN Shortness 06/16/20 11/28/21 History doses) breath activated powder Of Breath inhaler pen needle, diabetic 31 gauge x #100 ea 03/30/21 11/13/21 Rx 3/16" (BD Ultra-Fine Mini Pen Needle) blood sugar diagnostic #100 ea 07/11/21 11/13/21 Rx metformin 1,000 mg tablet 1,000 mg PO BID #180 tabs 07/13/21 12/17/21 Rx cyanocobalamin (vitamin B-12) 1,000 mcg PO UD 08/21/21 12/17/21 History 1,000 mcg tablet insulin glargine 100 unit/mL (3 18 unit subcut QAM 08/21/21 12/17/21 History mL) subcutaneous pen (Lantus Solostar U-100 Insulin) FreeStyle Marcio 14 Day Sensor #2 ea 10/19/21 11/13/21 Rx (flash glucose sensor) insulin lispro 100 unit/mL 6 unit subcut QAM 11/13/21 12/17/21 History subcutaneous pen (Humalog KwikPen (U-100) Insulin) cholecalciferol (vitamin D3) 10 10 mcg PO UD 11/28/21 12/17/21 History mcg (400 unit) capsule (Vitamin D3) diazepam 5 mg tablet 2.5 - 5 mg PO QAM 11/28/21 12/17/21 History ferrous sulfate 65 mg PO HS 11/28/21 12/17/21 History fluticasone propionate 50 2 spray intranasal HS PRN allergy 11/28/21 12/17/21 History mcg/actuation nasal symptoms spray,suspension multivit with minerals-iron 18 1 tab PO Q2D 11/28/21 12/17/21 History mg-folic ac 400 mcg-vit K 25 mcg tablet (One Daily Women's) pyiwqtfu-[id number]-aepbeo 5 mg-zeaxanth 1 cap PO Q3D 11/28/21 12/17/21 History 1 mg-bilberry 7.5 mg-herbal capsule (Macular Health Formula) olmesartan 40 1 tab PO QAM 11/28/21 12/17/21 History mg-hydrochlorothiazide 25 mg tablet omeprazole magnesium 20 mg 20 mg PO QAM 11/28/21 12/17/21 History tablet,delayed release (Prilosec OTC) vitamin E 400 unit tablet 45 mg PO UD 11/28/21 12/17/21 History Patient History Medical History Allergic rhinitis Anxiety Aortic aneurysm Distal infrarenal abdominal aorta measuring approximately 5.6 x 4.1 cm per 11/20/[address] 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 Hx MRSA infection Remote hx (toes, several years ago) Hypertension Hyperthyroidism Remote hx, no issues x years per pt Most recent thyroid labs euthyroid Personal history of diabetic foot ulcer "Well healed" per pt, wears special insoles to prevent Rheumatoid arthritis involving both hands with positive rheumatoid factor Pt denies Stage 2 chronic kidney disease Venous insufficiency Per records, pt denies Surgical History H/O esophagogastroduodenoscopy History of appendectomy History of Mohs micrographic surgery for skin cancer SCC (chest) Hx of cataract extraction R/L Hx of colonoscopy Hx of hand surgery Right Hx of tonsillectomy [place] teeth extracted Family History Father Myocardial infarction Grandfather Myocardial infarction Denies family history of Ovarian cancer Prostate cancer Breast cancer Colorectal cancer Social History Smoking Status: Former smoker Tobacco Type: Cigarettes Age Started Using Tobacco: 16; Age Quit Using Tobacco: 56; Smoking End Date: Quit 1991; Second Hand Exposure: No; Do You Dip or Chew Tobacco: No; Tobacco Cessation Education Requested by Patient: No Hx Alcohol Use: Yes Alcohol type: hard liquor Alcohol Intake Frequency: 4 or More x per/Week Alcohol Intake Frequency Comment: mixed drink daily in late afte rnoon Hx Substance Use: Yes Last Used Substance: Days (ago) Substance Use Type Other:: DEBORAHM Preferred Language: Khmer Communication Ability: Effective Visual Impairment: Partially Limited Hearing Ability: Use of Hearing Aid Tool Straightener Required: No Beliefs That Will Affect Care: None marital status: Current Living Situation: Spouse Current Living Situation Comment: HOME current occupational status: retired How many Children do You have: 1 Other Information That Helps Us Care for You: No Feels Safe at Home: Yes Safety Concerns: Feels Safe At This Time Childhood Exposure to Second-Hand Smoke: Yes Dental Care, Regularly: Yes Physical Activity Frequency: 5-6 Times per Week Seatbelt Use: always Sunscreen Use: No Assistive Devices: Glasses and Hearing Aid - Bilateral Assistive Devices Comment: contact-lt eye only Review of Systems Review of Systems: Please refer to admission H&P. No additions or deletions Physical Exam Constitutional: WD/WN, vitals as above Neck: trachea midline, no thyromegaly Respiratory: normal respiratory effort, lungs clear to auscultation Cardiovascular: RRR, no murmur, no edema Gastrointestinal (Abdomen): normal bowel sounds, soft, nontender, no hepatosplenomegaly Musculoskeletal: Extremities: extremities normal to inspection Skin: no rashes, warm and dry Neurologic: Nonfocal exam Lymphatic: no cervical lymphadenopathy Results & Data Results & Data ([facility]) Vital Signs (Past 12 Hours) Vital Signs Temp Pulse Pulse Resp BP BP BP 12/17/21 10:39 36.5 C 65 20 142/65 H 157/59 H 12/17/21 10:10 36.4 C L 62 12 140/70 12/17/21 10:00 62 12 147/75 H 12/17/21 09:50 64 15 151/75 H 12/17/21 09:40 61 14 152/71 H 12/17/21 09:33 37.1 C 72 14 148/79 H 12/17/21 06:27 36.8 C 61 16 186/78 H 172/89 H Pulse Ox O2 Del Method O2 Flow Rate 12/17/21 10:39 95 Room Air 12/17/21 10:10 95 Room Air 12/17/21 10:00 96 Room Air 12/17/21 09:50 100 Oxymask 5 12/17/21 09:40 100 Oxymask 5 12/17/21 09:33 99 Oxymask 5 12/17/21 06:27 99 Room Air Critical Care Results & Data Vital Signs (Past 12 Hours) Vital Signs Temp Pulse Pulse Resp BP BP BP 12/17/21 10:39 36.5 C 65 20 142/65 H 157/59 H 12/17/21 10:10 36.4 C L 62 12 140/70 12/17/21 10:00 62 12 147/75 H 12/17/21 09:50 64 15 151/75 H 12/17/21 09:40 61 14 152/71 H 12/17/21 09:33 37.1 C 72 14 148/79 H 12/17/21 06:27 36.8 C 61 16 186/78 H 172/89 H Pulse Ox O2 Del Method O2 Flow Rate 12/17/21 10:39 95 Room Air 12/17/21 10:10 95 Room Air 12/17/21 10:00 96 Room Air 12/17/21 09:50 100 Oxymask 5 12/17/21 09:40 100 Oxymask 5 12/17/21 09:33 99 Oxymask 5 12/17/21 06:27 99 Room Air Lab & Micro Results (Past 24 Hours) Hgb 12.6 g/dl (14.0-18.0) L 12/17/21 Hct 34.8 % (40.1-51.0) L 12/17/21 Na 129 mmol/L (136-145) L 12/17/21 K 3.5 mmol/L (3.5-5.1) 12/17/21 Cl 91 mmol/L (98-107) L 12/17/21 CO2 28 mmol/L (21-32) 12/17/21 Anion Gap 10 (3-11) 12/17/21 BUN 12 mg/dl (6-23) 12/17/21 Creatinine 1.15 mg/dl (0.6-1.4) 12/17/21 Estimated GFR ( Amer) 70.3 ml/min 12/17/21 Estimated GFR (Non-Af Amer) 60.6 ml/min 12/17/21 BUN/Creatinine Ratio 10.4 (10-20) 12/17/21 Glu 129 mg/dl (70-99(Fasting)) H 12/17/21 Ca 9.5 mg/dl (8.5-10.1) 12/17/21 Calcium Level 9.5 mg/dl (8.5-10.1) 12/17/21 06:25 I & O Totals 24 Hours 12/16/21 12/17/21 12/18/21 06:59 06:59 06:59 Intake Total 1650 / 1650 Output Total 285 / 285 Balance 1365 / 1365 Cumulative 11/22/21 12:10 thru 12/17/21 10:39 Intake Total 1650 Output Total 285 Balance 1365 RT Ventilator Mngmt (Last Documented) Ventilator Ordered Settings Respiratory Rate 20 12/17/21 10:39 Ventilator - PT Measurements Respiratory Rate 20 Coding Level of Care Code 59214 Inpt Consult Level 3 Diagnoses AAA (abdominal aortic aneurysm) without rupture I71.40 Diabetes type 2, controlled E11.9 Venous insufficiency I87.2 Stage 2 chronic kidney disease N18.2 Hypertension I10
[2021-12-17] MEDS ORDERED: COUGH DROP (SUGAR FREE) LOZ 24 LOZ/1 BOX BUCCAL STA (15:47)
[2021-12-17] MEDS ORDERED: MELATONIN 3 MG TAB PO PRN (20:05)
[2021-12-17] MEDS ORDERED: FERROUS SULFATE 325 MG TAB PO SCH (21:00)
[2021-12-18 06:01] LABS: Basophils # (auto) 0.04 K/uL (0-0.2); Basophils % (auto) 0.5 %; Eosinophils # (auto) 0.12 K/uL (0-0.50); Eosinophils % (auto) 1.6 %; Hemoglobin 12.5 g/dl (14.0-18.0); Immature Granulocytes # (auto) 0.03 K/uL (0.00-0.02); Immature Granulocytes % (auto) 0.4 %; Lymphocytes # (auto) 1.07 K/uL (1.2-3.4); Lymphocytes % (auto) 14.5 %; Mean Corpuscular Hemoglobin 31.7 pg (25.0-34.0); Mean Corpuscular Hgb Conc 35.7 g/dL (32.0-36.0); Mean Corpuscular Volume 88.8 fL (80.0-100.0); Mean Platelet Volume 9.4 fL (9.4-12.4); Monocytes # (auto) 0.78 K/uL (0.24-0.82); Monocytes % (auto) 10.6 %; Neutrophils # (auto) 5.35 K/uL (1.4-6.5); Neutrophils % (auto) 72.4 %; Platelet Count 184 K/uL (130-400); RDW Coefficient of Variation 12.9 % (11.5-14.5); RDW Standard Deviation 42.1 fL (36.4-46.3); Red Blood Count 3.94 M/uL (4.63-6.08); White Blood Count 7.39 K/ul (4.8-10.8)
[2021-12-18 06:19] LABS: BUN Creatinine Ratio 11.8 (10-20); Calcium 8.5 mg/dl (8.5-10.1); Creatinine Clr Calc Pharmacy 76.9 ml/min; Est GFR (African American) 81.2 ml/min; Est GFR (Non-African American) 70.1 ml/min; Potassium 3.7 mmol/L (3.5-5.1)
--- NOTE | 2021-12-18 07:20 | Surgery Progress Note ---
Date of Service December 18, 2021 Assessment & Plan (1) S/P endovascular aneurysm repair: Plan: Patient is doing well. We will get the IVs and Lua out. Once he voids he can be discharged to home. Admission and Anticipated Discharge Date Admission Date: December 17, 2021 Subjective Patient without complaint. He is claims he has no pain in the groins. He is tolerating his diet. He has no abdominal or back discomfort. He did say he had blood in his urine overnight but it is clearing up at this point. Physical Exam Constitutional: WD/WN, vitals as above Respiratory: normal respiratory effort; no respiratory distress Cardiovascular: Rate/Rhythm: regular rate and regular rhythm Vessels: normal peripheral pulses Extremities: normal capillary refill Gastrointestinal (Abdomen): Inspection/Auscultation: abdomen normal to inspection; abdomen not distended Percussion/Palpation: abdomen soft; abdomen nontender Musculoskeletal: no cyanosis or clubbing, extremities motor strength 5/5 Skin: + incision (Puncture sites without any hematoma.) Genitourinary: Urine output is good. He had small amount of hematuria which is clearing up nicely this morning. Results & Data ([facility]) Vital Signs (Past 12 Hours) Vital Signs Temp Pulse Resp BP Pulse Ox O2 Del Method 12/18/21 06:00 64 16 93 12/18/21 06:00 152/70 H 12/18/21 05:00 58 L 12 97 12/18/21 05:00 136/69 12/18/21 04:00 36.7 C 60 12 147/71 H 96 Room Air 12/18/21 03:00 60 13 132/69 94 Room Air 12/18/21 02:00 64 12 140/70 96 Room Air 12/18/21 01:00 56 L 13 150/71 H 96 Room Air 12/18/21 00:00 36.7 C 59 L 12 125/65 97 12/18/21 00:00 125/65 12/17/21 23:00 57 L 12 140/68 97 12/17/21 23:30 53 L 12/17/21 22:00 61 14 142/65 H 97 12/17/21 21:00 72 16 133/67 95 12/17/21 20:00 64 19 127/65 93 12/17/21 20:00 60
[2021-12-18] MEDS: INSULIN ASPART PER UNIT SC SCH (08:16)
[2021-12-18] MEDS ORDERED: diazePAM 5 MG TABLET PO SCH (09:00)
[2021-12-18] MEDS ORDERED: hydroCHLOROthiazide 25 MG TAB PO SCH (09:00)
[2021-12-18] MEDS ORDERED: LANTUS PER UNIT CHARGE SQ SCH ×2 (09:00)
[2021-12-18] MEDS ORDERED: PANTOprazole 40 MG TAB PO SCH (09:00)
[2021-12-18] MEDS ORDERED: OLMESARTAN MEDOXOMIL 40 MG TAB PO SCH ×2 (09:00→09:17)
--- NOTE | 2021-12-18 09:26 | Critical Care Progress Note ---
Date of Service December 18, 2021 Assessment & Plan (1) AAA (abdominal aortic aneurysm) without rupture: (2) Diabetes type 2, controlled: (3) Venous insufficiency: (4) Stage 2 chronic kidney disease: (5) Hypertension: Plan Impression: 76-year-old male status post endovascular repair of aortic aneurysm. Hemodynamically stable and doing well postoperatively. Recommendations: 1. Disposition per vascular surgery. 2. Hypertension: Continue outpatient antihypertensive regimen. 3. Diabetes: Continue glycemic control. Continue outpatient medications 4. Mild hyponatremia: Continue to trend. Serum creatinine is stable. Recommend discontinuation of hydrochlorothiazide 5. Activity per vascular surgery. 6. Analgesia per vascular surgery. Patient's critical care issues are resolved. Ultimate disposition per vascular surgery. Critical care will sign off. Feel free to contact us if we can be of additional assistance Admission and Anticipated Discharge Date Admission Date: December 17, 2021 Subjective Patient seen and examined. EMR reviewed. He is awake alert and sitting up eating breakfast. No chest pain or palpitations. No shortness of breath. No nausea vomiting or abdominal discomfort. No numbness and tingling in his feet or ankles beyond his baseline neuropathy. He is hemodynamically stable. No other acute issues overnight. Review of Systems Review of Systems: All systems reviewed & are unremarkable except as noted in Subjective Physical Exam Constitutional: WD/WN, vitals as above Neck: trachea midline, no thyromegaly Respiratory: normal respiratory effort, lungs clear to auscultation Cardiovascular: RRR, no murmur, no edema Gastrointestinal (Abdomen): normal bowel sounds, soft, nontender, no hepatosplenomegaly Musculoskeletal: Extremities: extremities normal to inspection Skin: no rashes, warm and dry Lymphatic: no cervical lymphadenopathy Results & Data Results & Data ([facility]) Vital Signs (Past 12 Hours) Vital Signs Temp Pulse Resp BP Pulse Ox O2 Del Method 12/18/21 06:00 64 16 93 12/18/21 06:00 152/70 H 12/18/21 05:00 58 L 12 97 12/18/21 05:00 136/69 12/18/21 04:00 36.7 C 60 12 147/71 H 96 Room Air 12/18/21 03:00 60 13 132/69 94 Room Air 12/18/21 02:00 64 12 140/70 96 Room Air 12/18/21 01:00 56 L 13 150/71 H 96 Room Air 12/18/21 00:00 36.7 C 59 L 12 125/65 97 12/18/21 00:00 125/65 12/17/21 23:00 57 L 12 140/68 97 12/17/21 23:30 53 L 12/17/21 22:00 61 14 142/65 H 97 Critical Care Results & Data Vital Signs (Past 12 Hours) Vital Signs Temp Pulse Resp BP Pulse Ox O2 Del Method 12/18/21 06:00 64 16 93 12/18/21 06:00 152/70 H 12/18/21 05:00 58 L 12 97 12/18/21 05:00 136/69 12/18/21 04:00 36.7 C 60 12 147/71 H 96 Room Air 12/18/21 03:00 60 13 132/69 94 Room Air 12/18/21 02:00 64 12 140/70 96 Room Air 12/18/21 01:00 56 L 13 150/71 H 96 Room Air 12/18/21 00:00 36.7 C 59 L 12 125/65 97 12/18/21 00:00 125/65 12/17/21 23:00 57 L 12 140/68 97 12/17/21 23:30 53 L 12/17/21 22:00 61 14 142/65 H 97 Lab & Micro Results (Past 24 Hours) RBC 3.94 M/uL (4.63-6.08) L 12/18/21 WBC 7.39 K/ul (4.8-10.8) 12/18/21 Hgb 12.5 g/dl (14.0-18.0) L 12/18/21 Hct 35.0 % (40.1-51.0) L 12/18/21 MCV 88.8 fL (80.0-100.0) 12/18/21 MCH 31.7 pg (25.0-34.0) 12/18/21 MCHC 35.7 g/dL (32.0-36.0) 12/18/21 RDW Standard Deviation 42.1 fL (36.4-46.3) 12/18/21 RDW Coefficient of Variation 12.9 % (11.5-14.5) 12/18/21 Plt Count 184 K/uL (130-400) 12/18/21 MPV 9.4 fL (9.4-12.4) 12/18/21 Neutrophils (%) (Auto) 72.4 % 12/18/21 Lymphocytes (%) (Auto) 14.5 % 12/18/21 Monocytes # (Auto) 0.78 K/uL (0.24-0.82) 12/18/21 Eosinophils # (Auto) 0.12 K/uL (0-0.50) 12/18/21 Immature Granulocyte % (Auto) 0.4 % 12/18/21 Neutrophils # (Auto) 5.35 K/uL (1.4-6.5) 12/18/21 Lymphocytes # (Auto) 1.07 K/uL (1.2-3.4) L 12/18/21 Monocytes # (Auto) 0.78 K/uL (0.24-0.82) 12/18/21 Eosinophils # (Auto) 0.12 K/uL (0-0.50) 12/18/21 Basophils # (Auto) 0.04 K/uL (0-0.2) 12/18/21 Immature Granulocyte # (Auto) 0.03 K/uL (0.00-0.02) H 12/18 Na 130 mmol/L (136-145) L 12/18/21 K 3.7 mmol/L (3.5-5.1) 12/18/21 Cl 98 mmol/L (98-107) 12/18/21 CO2 24 mmol/L (21-32) 12/18/21 Anion Gap 8 (3-11) 12/18/21 BUN 12 mg/dl (6-23) 12/18/21 Creatinine 1.02 mg/dl (0.6-1.4) 12/18/21 Estimated GFR ( Amer) 81.2 ml/min 12/18/21 Estimated GFR (Non-Af Amer) 70.1 ml/min 12/18/21 BUN/Creatinine Ratio 11.8 (10-20) 12/18/21 Glu 134 mg/dl (70-99(Fasting)) H 12/18/21 Ca 8.5 mg/dl (8.5-10.1) 12/18/21 Calcium Level 8.5 mg/dl (8.5-10.1) 12/18/21 05:23 I & O Totals 24 Hours 12/17/21 12/18/21 12/19/21 06:59 06:59 06:59 Intake Total 5044.917 / 5044.917 Output Total 2701 / 2701 Balance 2343.917 / 2343.917 Cumulative 11/22/21 12:10 thru 12/18/21 05:54 Intake Total 5044.917 Output Total 2701 Balance 2343.917 RT Ventilator Mngmt (Last Documented) Ventilator Ordered Settings Respiratory Rate 16 12/18/21 06:00 Ventilator - PT Measurements Respiratory Rate 16 Coding Level of Care Code 66120 Subseq Hosp Care Lvl 2 Diagnoses AAA (abdominal aortic aneurysm) without rupture I71.40 Diabetes type 2, controlled E11.9 Venous insufficiency I87.2 Stage 2 chronic kidney disease N18.2 Hypertension I10
--- NOTE | 2021-12-19 08:15 | Discharge Summary ---
Date of Service December 19, 2021 Admission HPI Per Admitting Provider Mr Rios is a 76-year-old gentleman who we were seen for abdominal aortic aneurysm. His aneurysm has grown to 5.6 cm in size. He has no complaints of abdominal discomfort at this point. He has no complaints of claudication. He underwent a CT angiogram to better define the anatomy of the aneurysm. Admission Exam Per Admitting Provider Constitutional: WD/WN, vitals as above Respiratory: normal respiratory effort, lungs clear to auscultation Cardiovascular: RRR, no murmur, no edema Vessels: abdominal aortic pulse present (AAA) and femoral pulses present Extremities: normal capillary refill Gastrointestinal (Abdomen): normal bowel sounds, soft, nontender, no hepatosplenomegaly Musculoskeletal: no cyanosis or clubbing, extremities motor strength 5/5 Neurologic: CN's II-XI intact bilaterally and moves all extremities Psychiatric: Orientation: alert and oriented x 3 Principal Diagnosis 1. s/p PEVAR 2. AAA Discharge Exam Constitutional WD/WN, vitals as above Respiratory normal respiratory effort, lungs clear to auscultation normal respiratory effort; no respiratory distress Cardiovascular RRR, no murmur, no edema Rate/Rhythm: regular rate and regular rhythm Vessels: normal peripheral pulses, abdominal aortic pulse present (AAA) and femoral pulses present Extremities: normal capillary refill Gastrointestinal (Abdomen) normal bowel sounds, soft, nontender, no hepatosplenomegaly Inspection/Auscultation: abdomen normal to inspection; abdomen not distended Percussion/Palpation: abdomen soft; abdomen nontender Musculoskeletal no cyanosis or clubbing, extremities motor strength 5/5 Skin + incision (Puncture sites without any hematoma.) Neurologic CN's II-XI intact bilaterally and moves all extremities Psychiatric Orientation: alert and oriented x 3 Discharge Data Allergies Allergy/AdvReac Type Severity Reaction Status Date / Time No Known Drug Allergies Allergy Verified 11/28/21 10:45 Consultations 12/17/21 10:37 Consult Ged Preparation Teacher Routine Procedures Performed Operation Date: 12/17/21 08:00 Actual Procedures p Percutaneous Endovascular Abdominal Aneurysm Repair - Jonathan Santos MD Ordered Studies 12/17/21 07:08 EV aorto bi iliac repair Routine US EV guide vascular access Routine Hospital Course (1) S/P endovascular aneurysm repair: Patient is doing well POD #1. We will get the IVs and Lua out. Once he voids he can be discharged to home. Total Time Total Time Spent Total Time Spent (In Minutes): 0 Discharge Plan Discharge Items Patient Disposition: Home - Self-Care Reason For Visit: Abdominal Aortic Aneurysm Discharge Diagnosis: Abdominal aortid aneurysm, endovascular repair of abdominal aortic aneurysm Activity: Per Instructions section Non-emergency contact: Surgeon Call non-emergency contact if: your temperature is above 101.5, your wound has increased redness, your wound has increased drainage and your wound pain has increased Follow-up/Referrals: Migdalia Jeffries MD [Primary Care Provider] - 01/01/22 10:20 am Diet: Carb Consistent or DM2 and Heart Healthy Addtl Attending Provider Instructions: SPECIAL CARE INSTRUCTIONS: Medications: * Continue to take your medications as directed. Incision/Puncture Site Care: * You will have an incision or puncture in each of your groins. Liquid glue will be used to seal your incisions/puncture site. This will lift off as the incisions/puncture sites heal. * If Liquid glue is not used, there will be small dressings covering your incisions. After you get home, you may remove the dressings and shower - allowing the warm soapy water to run over it. * Be sure to dry the sites well and keep them dry. * DO NOT SOAK IN A TUB/POOL/etc. UNTIL ALL SURGICAL SITES ARE HEALED. DO NOT REMOVE THE GLUE UNTIL THE INCISIONS HEAL. Restrictions: * Limit yourself to design editor activity for the first week. * You may walk and go up and down steps. * Avoid excessive bending or movement at the level of the incisions or punctures. Risks and Possible Complications: * Infection/Drainage/Bleeding - Drainage or bleeding from the incisions/punctu re site should be minimal. If you have excessive bleeding or drainage, call our office ([phone]) right away. * Pain/Numbness - You may experience some mild pain or soreness at your incision sites. You may also have some numbness around the incisions or into the insides of your thighs. Bruising is normal and should resolve within 2 weeks. * Changes in Appetite or Bowel Habits - Mostly related to anesthesia and pain medication, some patients have reported decreased appetite and/or problems with constipation. These symptoms usually improve over a few weeks. Remembering to take an [id number] stool softener, as directed, will help you to avoid constipation. Call our office and seek emergent treatment if you develop: * Fever or chills * Have a temperature greater than 101 degrees F * Any redness or purulent drainage from your incisions or punctures * Severe abdominal, chest or back pain SKIN IRRITATION: * You may experience some redness and/or swelling in the area where radiation was administered. If any skin irritation occurs, please contact your family physician. You will be receiving a call from the Vascular Surgery Nurse after you are discharged. FOLLOW UP VISIT: It is important for you to keep your follow up appointments with your medical provider. Keep any scheduled doctor appointments. Call [phone] to schedule a follow up appointment if one not already scheduled. Pending Studies at Discharge: No Stand-Alone Forms: [facility] [employer], Smoking Cessation Medications and DC Order Prescriptions: New oxycodone-acetaminophen [Percocet] 5-325 mg tablet 1 tab PO Q8H PRN (Reason: pain) Qty: 7 0RF Continued (DME) pen needle, diabetic [BD Ultra-Fine Mini Pen Needle] 31 gauge x 3/16" needle See Rx Instructions .ROUTE .MEDSUPPLY Qty: 100 3RF Rx Instructions: use once daily with insulin (DME) blood sugar diagnostic Strip See Dose Instructions .ROUTE .MEDSUPPLY Qty: 100 3RF Rx Instructions: test 1 time daily metformin 1,000 mg tablet 1,000 mg PO BID Qty: 180 1RF (DME) FreeStyle Marcio 14 Day Sensor Kit See Rx Instructions .ROUTE .MEDSUPPLY Qty: 2 11RF Rx Instructions: To be replaced each 14 days (DME) lancets [OneTouch Delica Lancets] 33 gauge misc See Rx Instructions .ROUTE .MEDSUPPLY Qty: 100 Rx Instructions: Test blood sugar once daily cyanocobalamin (vitamin B-12) 1,000 mcg tablet 1,000 mcg PO UD Rx Instructions: once weekly mometasone 220 mcg/ actuation (14) aerosol powdr breath activated 1 inh inhalation HS PRN (Reason: Shortness Of Breath) Lantus Solostar U-100 Insulin 100 unit/mL (3 mL) insulin pen 18 unit subcut QAM insulin lispro [Humalog KwikPen Insulin] 100 unit/mL insulin pen 6 unit subcut QAM vitamin E 400 unit Tablet 45 mg PO UD Rx Instructions: once weekly cholecalciferol (vitamin D3) [Vitamin D3] 10 mcg (400 unit) Capsule 10 mcg PO UD Rx Instructions: take once weekly One Daily Women's 18 mg iron-400 mcg-25 mcg Tablet 1 tab PO Q2D ferrous sulfate 65 mg PO HS fluticasone propionate 50 mcg/actuation spray,suspension 2 spray intranasal HS PRN (Reason: allergy symptoms) diazepam 5 mg tablet 2.5 - 5 mg PO QAM olmesartan-hydrochlorothiazide 40-25 mg tablet 1 tab PO QAM omeprazole magnesium [Prilosec OTC] 20 mg tablet,delayed release (DR/EC) 20 mg PO QAM Macular Health Formula 5-1-7.5 mg capsule 1 cap PO Q3D Discharge Orders: Discharge Order (Routine); Ordered 12/18/21 Ordered By: Jonathan Sarabia/Other Patient Handouts: Understanding Pouchitis, Endovascular Repair of AAA Admission Data Admit Date/Time: 12/17/21 07:40 Attending Provider: Jonathan Santos Admit Provider: Jonathan Santos Primary Care Provider: Migdalia Jeffries Other Providers: Checo Gregory ; Paul William ; Kendrick Uribe ; Horace Murcia ; Giovanny Myers ; Dhiraj Lawler ; Elizabeth Patton ; Anmol Peace ; Azalia Machado Other Interventions: Discharge Summary Assessment (RN) Last Done: 12/18/21 10:10
[2021-12-21] MEDS ORDERED: CYANOCOBALAMIN (B-12) 500 MCG TABLET PO SCH (09:00)
== END 2021-12-18 11:06 | disposition home or self-care (01) | DRG 269 ==
LOC: ASU 05:58 → 1E 07:40

== ENCOUNTER 2025-01-20 07:51 | Inpatient (IN) ==
[2025-01-20] MEDS ORDERED: STAT IV Infusion **Titration per Protocol STA (08:14)
[2025-01-20] MEDS: SODIUM CHLORIDE 0.9% 1,000 ML IV STA (08:22)
[2025-01-20 08:34] LABS: Hematocrit (blood only) 38.3 % (42.0-52.0); Hemoglobin 13.7 g/dL (14.0-18.0); Immature Granulocytes # (auto) 0.03 K/uL (0.01-0.20); Immature Granulocytes % (auto) 0.5 %; Mean Corpuscular Hemoglobin 32.9 pg (25.0-34.0); Mean Corpuscular Volume 92.1 fL (80.0-100.0); Platelet Count 156 K/uL (130-400); RDW Standard Deviation 46.0 fL (36.4-46.3); Red Blood Count 4.16 M/uL (4.70-6.10); White Blood Count 6.07 K/ul (4.8-10.8)
[2025-01-20 08:51] LABS: Alanine Aminotransferase 14.0 U/L (7-52); Albumin Globulin Ratio 1.4 (0.9-2); Albumin Level 4.6 gm/dl (3.4-5.0); Alkaline Phosphatase 53.0 U/L (34-104); Anion Gap 11.0 (3-11); Bilirubin,Total 0.8 mg/dl (0.2-1.0); Blood Urea Nitrogen 13.0 mg/dl (6-23); Calcium 9.9 mg/dl (8.6-10.3); Carbon Dioxide 26.0 mmol/L (21-32); Chloride 96.0 mmol/L (98-107); Creatinine Clr Calc Pharmacy 60.3 ml/min; Globulin 3.2 gm/dl (2.5-4.0); Glucose 121.0 mg/dl (70-99(Fasting)); Magnesium 1.4 mg/dl (1.7-2.4); Potassium 4.1 mmol/L (3.5-5.1); Sodium 133.0 mmol/L (136-145); Total Protein 7.8 gm/dl (6.0-8.3)
--- NOTE | 2025-01-20 08:52 | Emergency Department Note ---
History of Present Illness General Chief complaint: Cardiac Assessment Stated complaint: AFIB Time Seen by Provider: 01/20/25 08:01 Source: patient Mode of arrival: wheelchair Limitations: no limitations History of Present Illness Patient is a 79-year-old male who presents from cardiac rehab after recent TAVR with elevated heart rate. He was on the stepper when staff notices irregular heart rate. He has had a similar episode of A-fib in the past that resolved on its own. He is only on baby aspirin at this time. Denies any lightheadedness, dizziness, chest pain, shortness of breath, nausea, vomiting, lower extremity swelling. Home Medications Medication Instructions Recorded Confirmed Type omeprazole magnesium 20 mg 20 mg PO QAM 11/28/21 10/28/24 History tablet,delayed release (Prilosec OTC) cholecalciferol (vitamin D3) 10 10 mcg PO .weekly 01/01/22 10/28/24 History mcg (400 unit) capsule (Vitamin D3) vitamin E 400 unit tablet 45 mg PO .once weekly 04/05/22 10/28/24 History atorvastatin 10 mg tablet 10 mg PO DAILY #90 tabs 07/25/22 10/28/24 Rx tamsulosin 0.4 mg capsule 0.8 mg (2 x 0.4 mg) PO PM #180 caps 09/09/22 10/28/24 Rx cyanocobalamin (vitamin B-12) 500 mcg PO .WEEKLY 11/05/22 10/28/24 History 1,000 mcg tablet multivit with minerals-iron 18 1 tab PO .COMPLEX 04/07/23 10/28/24 History mg-folic ac 400 mcg-vit K 25 mcg tablet (One Daily Women's) nuugdzey-ant-khbrdh 5 mg-zeaxanth 1 cap PO .COMPLEX 04/12/24 10/28/24 History 1 mg-bilberry 7.5 mg-herbal capsule (Macular Health Formula) tadalafil 5 mg tablet 5 mg PO DAILY #90 tabs 05/11/24 10/28/24 Rx aspirin 81 mg tablet,delayed 81 mg PO DAILY #30 tabs 08/11/24 10/28/24 Rx release (Adult Low Dose Aspirin) metformin 1,000 mg tablet 1,000 mg PO BID #180 tabs 08/17/24 10/28/24 Rx olmesartan 40 mg tablet 40 mg PO DAILY #90 tabs 08/17/24 10/28/24 Rx albuterol sulfate 90 mcg/actuation 2 puff inhalation Q4H PRN 10/28/24 10/28/24 History aerosol inhaler ascorbate calcium (vitamin C) 500 500 mg PO DAILY 10/28/24 10/28/24 History mg tablet ferrous sulfate 325 mg (65 mg 325 mg PO BID 10/28/24 10/28/24 History iron) tablet (Feosol) thiamine HCl (vitamin B1) 100 mg 100 mg PO .COMPLEX 10/28/24 10/28/24 History capsule umeclidinium 62.5 mcg-vilanterol 1 inh inhalation DAILY 10/28/24 10/28/24 History 25 mcg/actuation powdr for inhalation (Anoro Ellipta) Allergies Allergy/AdvReac Type Severity Reaction Status Date / Time No Known Drug Allergies Allergy Unknown Verified 10/28/24 09:02 Past Med/Surg History Problem List (Updated 01/20/25 @ 15:32 by Paul Lieberman MD) Atrial fibrillation with RVR (Acute) Atrial fibrillation with RVR S/P TAVR (transcatheter aortic valve replacement) Aortic stenosis, severe HUSSEIN (dyspnea on exertion) Nocturia Pre-syncope Sensorineural hearing loss (SNHL) of both ears Prostatitis Elevated PSA Vitamin D deficiency Mixed conductive and sensorineural hearing loss of right ear with restricted hearing of left ear Venous insufficiency 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 Santos Allergic rhinitis Diabetic peripheral neuropathy associated with type 2 diabetes mellitus Graves disease Personal history of diabetic foot ulcer wears special insoles to prevent Hypertension Dyslipidemia Diabetes type 2, controlled S/P endovascular aneurysm repair Diabetic nephropathy associated with type 2 diabetes mellitus Aortic stenosis Moderate on echo 2021, probably severe but asymptomatic in 2022 H/O iron deficiency anemia Anxiety Medical History Hyperthyroidism Surgical History History of endoscopy History of pancreatic surgery History of abdominal aortic aneurysm repair Hx of colonoscopy Hx of hand surgery History of Mohs micrographic surgery for skin cancer Hx of cataract extraction H/O esophagogastroduodenoscopy [place] teeth extracted Hx of tonsillectomy History of appendectomy Family History Father Myocardial infarction Grandfather Myocardial infarction Denies family history of Ovarian cancer Prostate cancer Breast cancer Colorectal cancer Social History Smoking Status: Former smoker Tobacco Type: Cigarettes Age Started Using Tobacco: 16; Age Quit Using Tobacco: 56; Second Hand Exposure: No; Do You Dip or Chew Tobacco: No; Hx Alcohol Use: Yes Alcohol type: hard liquor Alcohol Intake Frequency: 4 or More x per/Week Alcohol Intake Frequency Comment: mixed drink daily in late afternoon, 3 drinks daily Hx Substance Use: No Preferred Language: Macanese Communication Ability: Effective Visual Impairment: Partially Limited Hearing Ability: Use of Hearing Aid Broadcast Correspondent Required: No Beliefs That Will Affect Care: None marital status: Current Living Situation: Spouse Current Living Situation Comment: HOME current occupational status: 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 Physical Exam Vital Signs Vital Signs - 24 hr 01/20/25 08:00 01/20/25 08:00 01/20/25 08:00 Temperature 36.9 C Temperature Source Oral Pulse Rate 134 H 140 H Pulse Rate from SpO2 Sensor 128 H Respiratory Rate 16 18 Respiratory Effort / Characteristics Non-Labored Spontaneous Respiratory Depth Normal Respiratory Pattern Regular Blood Pressure 152/105 H 152/105 H Blood Pressure Mean 120 120 Pulse Oximetry 97 97 96 Oxygen Delivery Method Room Air Room Air Room Air Sepsis Recent Fever Within 48 Hours No Sepsis New/Unexplained Change in Mental Status No Sepsis Action Taken by Nursing No Action Required 01/20/25 08:14 01/20/25 08:15 01/20/25 08:30 Temperature Temperature Source Pulse Rate 146 H 140 H 127 H Pulse Rate from SpO2 Sensor 140 H 128 H Respiratory Rate 15 14 Respiratory Effort / Characteristics Respiratory Depth Respiratory Pattern Blood Pressure 149/106 H 146/90 H Blood Pressure Mean 120 108 Pulse Oximetry 93 95 Oxygen Delivery Method Room Air Room Air Sepsis Recent Fever Within 48 Hours Sepsis New/Unexplained Change in Mental Status Sepsis Action Taken by Nursing 01/20/25 08:45 01/20/25 09:15 01/20/25 09:30 Temperature Temperature Source Pulse Rate 133 H 135 H 120 H Pulse Rate from SpO2 Sensor 137 H 134 H 131 H Respiratory Rate 14 13 18 Respiratory Effort / Characteristics Respiratory Depth Respiratory Pattern Blood Pressure 126/92 117/91 136/96 Blood Pressure Mean 103 99 109 Pulse Oximetry 94 96 96 Oxygen Delivery Method Room Air Room Air Sepsis Recent Fever Within 48 Hours Sepsis New/Unexplained Change in Mental Status Sepsis Action Taken by Nursing 01/20/25 09:45 01/20/25 10:15 01/20/25 10:30 Temperature Temperature Source Pulse Rate 124 H 122 H 112 H Pulse Rate from SpO2 Sensor 122 H 129 H 106 H Respiratory Rate 19 17 28 H Respiratory Effort / Characteristics Respiratory Depth Respiratory Pattern Blood Pressure 130/86 Blood Pressure Mean 100 Pulse Oximetry 93 96 96 Oxygen Delivery Method Room Air Room Air Room Air Sepsis Recent Fever Within 48 Hours Sepsis New/Unexplained Change in Mental Status Sepsis Action Taken by Nursing 01/20/25 10:40 01/20/25 10:45 Temperature Temperature Source Pulse Rate 107 H 115 H Pulse Rate from SpO2 Sensor 103 H 98 H Respiratory Rate 20 21 Respiratory Effort / Characteristics Respiratory Depth Respiratory Pattern Blood Pressure 136/89 132/99 Blood Pressure Mean 98 110 Pulse Oximetry 95 95 Oxygen Delivery Method Room Air Room Air Sepsis Recent Fever Within 48 Hours Sepsis New/Unexplained Change in Mental Status Sepsis Action Taken by Nursing See below. Constitutional WD/WN, vitals as above Respiratory normal respiratory effort, lungs clear to auscultation Cardiovascular Rate/Rhythm: + tachycardic and + irregularly irregular Gastrointestinal (Abdomen) normal bowel sounds, soft, nontender, no hepatosplenomegaly Course Administered Medications Diltiazem HCl 125 mg/ Dextrose 125 mls @ 15 mls/hr IV .Q8H20M [facility]; Protocol Stop: 02/19/25 08:14 Last Titration: 01/20/25 10:38 Dose: 15 mg/hr, 15 mls/hr Documented By: MATA Co-signed By: KATHY Titration: 01/20/25 09:32 Dose: 10 mg/hr, 10 mls/hr Documented By: MATA Co-signed By: KATHY Admin: 01/20/25 08:33 Dose: 5 mg/hr, 5 mls/hr Documented By: MATA Co-signed By: KATHY Magnesium Sulfate/Dextrose (Magnesium Sulfate / D5w) 1 gm in 100 mls @ 50 mls/hr IV Q2H MAGALI Stop: 01/20/25 19:44 Last Admin: 01/20/25 15:17 Dose: 50 mls/hr Documented By: MATA Discontinued Medications Apixaban (Apixaban 5 Mg Tablet) 5 mg PO NOW ONE Stop: 01/20/25 14:46 Last Admin: 01/20/25 15:17 Dose: 5 mg Documented By: MATA Diazepam (Diazepam 5 Mg Tablet) 5 mg PO NOW ONE Stop: 01/20/25 09:36 Last Admin: 01/20/25 09:40 Dose: 5 mg Documented By: MATA Diltiazem HCl (Diltiazem Hcl 5 Mg/Ml 5 Ml Vial) 20 mg IV NOW STA Stop: 01/20/25 08:15 Last Admin: 01/20/25 08:23 Dose: 20 mg Documented By: MATA Co-signed By: KATHY Sodium Chloride (Nss) 1,000 mls @ 999 mls/hr IV .Q1H1M STA Stop: 01/20/25 09:14 Last Infusion: 01/20/25 10:47 Dose: Infused Documented By: Admin: 01/20/25 08:22 Dose: 999 mls/hr Documented By: MATA Ioversol (Optiray 320 125ml) 112 ml IV ONCE ONE Stop: 01/20/25 09:55 Last Admin: 01/20/25 09:55 Dose: 112 ml Documented By: [place] Medical Decision Making Differential Diagnosis DDx includes but not limited to atrial fibrillation with RVR, atrial flutter, SVT, ACS, metabolic abnormality, PE, dehydration Medical Records Attestation: I reviewed the patient's medical records. Home Medications Current Medication List: was personally reviewed by me Laboratory Data Attestation: I reviewed the patient's lab results. 01/20/25 07:58 01/20/25 07:58 Lab Results 01/20/25 01/20/25 Range/Units 07:58 10:23 WBC 6.07 (4.8-10.8) K/ul RBC 4.16 L (4.70-6.10) M/uL Hgb 13.7 L (14.0-18.0) g/dL Hct 38.3 L (42.0-52.0) % MCV 92.1 (80.0-100.0) fL MCH 32.9 (25.0-34.0) pg MCHC 35.8 (32.0-36.0) g/dL RDW Std Deviation 46.0 (36.4-46.3) fL RDW Coeff of Brian 13.5 (11.5-14.5) % Plt Count 156 (130-400) K/uL MPV 9.6 (9.4-12.4) fL Immature Gran % (Auto) 0.5 % Neut % (Auto) 54.7 % Lymph % (Auto) 29.3 % [place] % (Auto) 11.0 % Eos % (Auto) 3.8 % Baso % (Auto) 0.7 % Neut # (Auto) 3.32 (1.40-6.50) K/uL Lymph # (Auto) 1.78 (1.20-3.40) K/uL [place] # (Auto) 0.67 H (0.11-0.59) K/uL Eos # (Auto) 0.23 (0.00-0.50) K/uL Baso # (Auto) 0.04 (0.00-0.20) K/uL Immature Gran # (Auto) 0.03 (0.01-0.20) K/uL D-Dimer 2020 H* (0-500) ug/L FEU Sodium 133 L (136-145) mmol/L Potassium 4.1 (3.5-5.1) mmol/L Chloride 96 L (98-107) mmol/L Carbon Dioxide 26 (21-32) mmol/L Anion Gap 11 (3-11) BUN 13 (6-23) mg/dl Creatinine 1.24 (0.6-1.4) mg/dl Est Cr Clr Drug Dosing 60.3 ml/min eGFR 58.41 BUN/Creatinine Ratio 10.5 (10-20) Glucose 121 H (70-99(Fasting)) mg/dl Calcium 9.9 (8.6-10.3) mg/dl Magnesium 1.4 L (1.7-2.4) mg/dl Total Bilirubin 0.8 (0.2-1.0) mg/dl AST 22 (13-39) U/L ALT 14 (7-52) U/L Alkaline Phosphatase 53 (34-104) U/L Troponin I High Sens 36.7 H 34.6 H (0-20) pg/ml Total Protein 7.8 (6.0-8.3) gm/dl Albumin 4.6 (3.4-5.0) gm/dl Globulin 3.2 (2.5-4.0) gm/dl Albumin/Globulin Ratio 1.4 (0.9-2) TSH 2.943 (0.300-4.500) uIu/ml Imaging Data Attestation: I personally reviewed and interpreted this imaging study as follows: My Impression: No acute cardiopulmonary problems. Right Hemidiaphragmatic elevation Radiologist's Impression: Chest X-Ray 01/20/25 08:14 XR chest 2V PA/lateral HISTORY: 79 years-old Male Afib acute chest pain with atrial fibrillation COMPARISON: 10/16/2023 TECHNIQUE: PA and lateral views of the chest FINDINGS: Cardiac silhouette is enlarged. Cardiac valvular prosthesis. The lungs are mildly hypoinflated with subsegmental bibasilar densities. Chronic right hemidiaphragmatic elevation. No pneumothorax, large pleural effusion or overt pulmonary edema. Partially imaged vascular graft of the upper abdomen. Degenerative changes of the shoulders and spine. IMPRESSION: 1. Cardiomegaly with hypoinflation. 2. Chronic right hemidiaphragmatic elevation with mild bibasilar densities, likely atelectasis. ACT 112: Negative or not required by law. The above report was generated using voice recognition software. It may contain grammatical, syntax or spelling errors. Electronically signed by: Milton Garcia M.D. 01/20/2025 9:36 AM Chest CTA 01/20/25 09:10 CT angio chest PE protocol CT DOSE: 930.02 mGy.cm HISTORY: 79 years-old Male with PE. Acute shortness of breath with atrial fibrillation TECHNIQUE: Multiple CTA images of the chest were obtained after the intravenous administration of 112 ml Optiray. Coronal and sagittal MIPS were obtained from the axial data set and were submitted for review. All measurements were obtained according to NASCET criteria. A dose lowering technique was utilized adhering to the principles of ALARA. COMPARISON: Chest radiograph same day, chest CT 05/03/2022 FINDINGS: CTA: Mild cardiomegaly with trace pericardial effusion. There is thinning of the left ventricular apex suggestive of a chronic infarct. Aortic valvular prosthesis. There is atherosclerosis of the aorta without aneurysm or dissection. No central pulmonary emboli identified, evaluation is limited secondary to respiratory motion artifact and contrast bolus timing. CT CHEST: Unremarkable thyroid. No pathologically enlarged lymph nodes identified. There is no pneumothorax, pleural effusion, airspace consolidation or pulmonary edema. No suspicious pulmonary nodules or masses identified. No acute upper abdominal abnormality is seen. Cortical thinning of the kidneys with bilateral perinephric stranding. Exophytic probable cyst of the superior pole left kidney. Hepatic steatosis. Unremarkable soft tissues. No acute fracture. IMPRESSION: 1. Cardiomegaly without acute intrathoracic abnormality. 2. No pulmonary emboli are seen. ACT 112: Negative or not required by law. The above report was generated using voice recognition software. It may contain grammatical, syntax or spelling errors. Electronically signed by: Milton Garcia M.D. 01/20/2025 10:29 AM ECG Data Attestation: I personally reviewed and interpreted this ECG as follows: Indication: + tachycardia Rate (beats per minute): 138 Rhythm: + atrial fibrillation ECG Intervals/blocks: + Normal QRS and + Normal QT ECG [place]: + Left axis deviation ECG ST segments: + Normal ST segments Comparison ECG Date: from (12/11/2024) Additional Comments: Atrial fibrillation is new from prior. Blood Pressure Blood Pressure Findings: Normal blood pressure MDM Narrative Patient is an 79-year-old male presents in A-fib with RVR from cardiac rehab. Hemodynamically stable. Asymptomatic on my evaluation. Heart rate on arrival was 134. Rhythm consistent with atrial fibrillation. No formal diagnosis of A- fib in the past. He is on baby aspirin but no other anticoagulation. Lab work was reviewed. Minimal elevation in troponin likely secondary to demand ischemia. D-dimer greater than 2000. Follow-up CTA shows no acute PE or cardiopulmonary process. Patient was started on a diltiazem infusion with bolus. Heart rate controlled around 110-120 at a rate of 10 mg/h. Stable for admission to hospitalist service for management of new onset A-fib RVR. Authorized and Performed by: Total critical care time: Approximately 35 CC diagnosis: Due to a high probability of clinically significant, life threatening deterioration, the patient required my highest level of preparedness to intervene emergently and I personally spent this critical care time directly and personally managing the patient. This critical care time included obtaining a history; examining the patient; pulse oximetry; ordering and review of studies; arranging urgent treatment with development of a management plan; evaluation of patient's response to treatment; frequent reassessment; and, discussions with other providers. This critical care time was performed to assess and manage the high probability of imminent, life-threatening deterioration that could result in multi-organ failure. It was exclusive of separately billable procedures and treating other patients and teaching time. Please see MDM section and the rest of the note for further information on patient assessment and treatment. Impression & Plan Atrial fibrillation with RVR Discharge Plan Visit Data Chief Complaint: Cardiac Assessment Stated Complaint: AFIB ED Provider: Pual Lieberman Discharge Problem: Atrial fibrillation with RVR Patient Disposition: Home - Self-Care Condition: Good Forms Stand Alone Forms: [facility], Important Visit Information Prescriptions Prescriptions: No Action vitamin E 400 unit tablet 45 mg PO .once weekly Rx Instructions: once weekly atorvastatin 10 mg tablet 10 mg PO DAILY Qty: 90 3RF Macular Health Formula 5-1-7.5 mg capsule 1 cap PO .COMPLEX Rx Instructions: 1 cap orally twice per week; olmesartan 40 mg tablet 40 mg PO DAILY Qty: 90 3RF metformin 1,000 mg tablet 1,000 mg PO BID Qty: 180 3RF cyanocobalamin (vitamin B-12) 1,000 mcg tablet 500 mcg PO .WEEKLY Rx Instructions: once weekly tamsulosin 0.4 mg capsule 0.8 mg PO PM Qty: 180 3RF ferrous sulfate [Feosol] 325 mg (65 mg iron) tablet 325 mg PO BID ascorbate calcium (vitamin C) 500 mg tablet 500 mg PO DAILY umeclidinium-vilanterol [Anoro Ellipta] 62.5-25 mcg/actuation blister with device 1 inh inhalation DAILY thiamine HCl (vitamin B1) 100 mg capsule 100 mg PO .COMPLEX Rx Instructions: 100 mg orally once a week; albuterol sulfate 90 mcg/actuation HFA aerosol inhaler 2 puff inhalation Q4H PRN tadalafil 5 mg tablet 5 mg PO DAILY Qty: 90 3RF omeprazole magnesium [Prilosec OTC] 20 mg tablet,delayed release (DR/EC) 20 mg PO QAM cholecalciferol (vitamin D3) [Vitamin D3] 10 mcg (400 unit) capsule 10 mcg PO .weekly Rx Instructions: take once weekly One Daily Women's 18 mg iron-400 mcg-25 mcg tablet 1 tab PO .COMPLEX Rx Instructions: 1 tab orally 3 times weekly; aspirin [Adult Low Dose Aspirin] 81 mg tablet,delayed release (DR/EC) 81 mg PO DAILY Qty: 30 0RF Referrals Referrals: Jensen Mayfield [Primary Care Provider] -
[2025-01-20 09:06] LABS: Thyroid Stimulating Hormone 2.943 uIu/ml (0.300-4.500)
--- NOTE | 2025-01-20 09:37 | XRay Report ---
XR chest 2V PA/lateral HISTORY: 79 years-old Male Afib acute chest pain with atrial fibrillation COMPARISON: 10/16/2023 TECHNIQUE: PA and lateral views of the chest FINDINGS: Cardiac silhouette is enlarged. Cardiac valvular prosthesis. The lungs are mildly hypoinflated with s ubsegmental bibasilar densities. Chronic right hemidiaphragmatic elevation. No pneumothorax, large pl eural effusion or overt pulmonary edema. Partially imaged vascular graft of the upper abdomen. Degene rative changes of the shoulders and spine. IMPRESSION: 1. Cardiomegaly with hypoinflation. 2. Chronic right hemidiaphragmatic elevation with mild bibasilar densities, likely atelectasis. ACT 112: Negative or not required by law. The above report was generated using voice recognition software. It may contain grammatical, syntax o r spelling errors. Electronically signed by: Milton Garcia M.D. 01/20/2025 9:36 AM
[2025-01-20] MEDS: OPTIRAY 320 125ml IV ONE (09:55)
--- NOTE | 2025-01-20 10:32 | CT Scan Report ---
CT angio chest PE protocol CT DOSE: 930.02 mGy.cm HISTORY: 79 years-old Male with PE. Acute shortness of breath with atrial fibrillation TECHNIQUE: Multiple CTA images of the chest were obtained after the intravenous administration of 112 ml Optiray. Coronal and sagittal MIPS were obtained from the axial data set and were submitted for review. All measurements were obtained according to NASCET criteria. A dose lowering technique was u tilized adhering to the principles of ALARA. COMPARISON: Chest radiograph same day, chest CT 05/03/2022 FINDINGS: CTA: Mild cardiomegaly with trace pericardial effusion. There is thinning of the left ventricular apex sug gestive of a chronic infarct. Aortic valvular prosthesis. There is atherosclerosis of the aorta witho ut aneurysm or dissection. No central pulmonary emboli identified, evaluation is limited secondary to respiratory motion artifact and contrast bolus timing. CT CHEST: Unremarkable thyroid. No pathologically enlarged lymph nodes identified. There is no pneumothorax, pl eural effusion, airspace consolidation or pulmonary edema. No suspicious pulmonary nodules or masses identified. No acute upper abdominal abnormality is seen. Cortical thinning of the kidneys with bilat eral perinephric stranding. Exophytic probable cyst of the superior pole left kidney. Hepatic steatos is. Unremarkable soft tissues. No acute fracture. IMPRESSION: 1. Cardiomegaly without acute intrathoracic abnormality. 2. No pulmonary emboli are seen. ACT 112: Negative or not required by law. The above report was generated using voice recognition software. It may contain grammatical, syntax o r spelling errors. Electronically signed by: Milton Garcia M.D. 01/20/2025 10:29 AM
--- NOTE | 2025-01-20 14:33 | History & Physical Report ---
"Date of Service January 20, 2025 Assessment & Plan (1) Atrial fibrillation with RVR: (2) S/P TAVR (transcatheter aortic valve replacement): (3) Hypertension: (4) Anxiety: Plan Tyrese is an 79-year-old male with a past medical history of iron deficiency anemia, AAA postrepair, type 2 diabetes, hypertension, TAVR on 10/14/2024 who presents from cardiac rehab for concerns of afib RVR. Inital evaluation also showed elevated d-dimer, but CTA chest without PE. Started on diltazem drip, admitted for cardiology evaluation. # A fib RVR | Recent TAVR - Continue Diltiazem drip, recent echo with EF 65-70% Consult Cardiology Keep NPO until seen by cardiology Replace Mag - recheck AM. TSH WNL Start Eliquis Echo Ordered Continue ASA and statin AM CBC, BMP, MAg #HTN Continue olmesartan or formulary equivalent #DMT2 - recent A1c 4.9 Home meds: metformin - HELD Check BSG ACHS - without steroid use, suspect will not need SSI #Anxiety - continue Valium #GERD - Continue PPI Dispo: admit to PCU DVT proh: ELiqu[employer] Med rec not completed on admission secondary to [employer] outage - home meds ordered per last cardiac rehab note. History of Present Illness Chief Complaint: A-fib RVR Primary Care Provider: Jensen Mayfield Tyrese is an 79-year-old male with a past medical history of iron deficiency anemia, AAA postrepair, type 2 diabetes, hypertension, TAVR on 10/14/2024 who presents from cardiac rehab. States that he was on the treadmill and the rehabilitation services counselor told him that he needed to get off and have an EKG done and was found to be in A-fib RVR. States that just prior to his TAVR procedure the nurse asked him if he had a history of arrhythmias and he said no and they told him that he was possibly in A-fib at that time but by the time they started to do an EKG he had converted. He did say he felt like something was off this morning when he was on the treadmill but did not feel like he was having shortness of breath or palpitations. Otherwise in his normal state of health. Reports that he has been recovering well from his recent TAVR procedure. He took his Protonix and Valium this morning but did not take his other medications He wishes to be a full code ED course: Cardizem drip Valium 5 mg p.o. Allergies Allergy/AdvReac Type Severity Reaction Status Date / Time No Known Drug Allergies Allergy Unknown Verified 10/28/24 09:02 Home Medications Medication Instructions Recorded Confirmed Type omeprazole magnesium 20 mg 20 mg PO QAM 11/28/21 01/20/25 History tablet,delayed release (Prilosec OTC) cholecalciferol (vitamin D3) 10 10 mcg PO .weekly 01/01/22 01/20/25 History mcg (400 unit) capsule (Vitamin D3) vitamin E 400 unit tablet 45 mg PO .once weekly 04/05/22 01/20/25 History atorvastatin 10 mg tablet 10 mg PO DAILY #90 tabs 07/25/22 01/20/25 Rx tamsulosin 0.4 mg capsule 0.8 mg (2 x 0.4 mg) PO PM #180 caps 09/09/22 01/20/25 Rx cyanocobalamin (vitamin B-12) 1,000 mcg PO .WEEKLY 11/05/22 01/20/25 History 1,000 mcg tablet multivit with minerals-iron 18 1 tab PO .COMPLEX 04/07/23 01/20/25 History mg-folic ac 400 mcg-vit K 25 mcg tablet (One Daily Women's) mykgkyfk-xsy-rloajf 5 mg-zeaxanth 1 cap PO Q OTHER DAY 04/12/24 01/20/25 History 1 mg-bilberry 7.5 mg-herbal capsule (Macular Health Formula) tadalafil 5 mg tablet 5 mg PO DAILY #90 tabs 05/11/24 01/20/25 Rx aspirin 81 mg tablet,delayed 81 mg PO DAILY #30 tabs 08/11/24 01/20/25 Rx release (Adult Low Dose Aspirin) metformin 1,000 mg tablet 1,000 mg PO BID #180 tabs 08/17/24 01/20/25 Rx olmesartan 40 mg tablet 40 mg PO DAILY #90 tabs 08/17/24 01/20/25 Rx albuterol sulfate 90 mcg/actuation 2 puff inhalation Q4H PRN Wheezing 10/28/24 01/20/25 History aerosol inhaler ferrous sulfate 325 mg (65 mg 400 mg PO DAILY 10/28/24 01/20/25 History iron) tablet (Feosol) thiamine HCl (vitamin B1) 100 mg 100 mg PO .COMPLEX 10/28/24 01/20/25 History capsule acetaminophen 325 mg tablet 650 mg PO Q4 PRN .fever/pain 1-3 01/20/25 01/20/25 History diazepam 5 mg tablet 2.5 mg PO QPM 01/20/25 01/20/25 History diazepam 5 mg tablet 5 mg PO QAM 01/20/25 01/20/25 History ipratropium bromide 42 mcg (0.06 1 - 2 spray intranasal QID PRN as 01/20/25 01/20/25 History %) nasal spray instructed Past Med/Surg History Problem List (Updated 01/20/25 @ 15:32 by Paul Lieberman MD) Atrial fibrillation with RVR (Acute) Atrial fibrillation with RVR S/P TAVR (transcatheter aortic valve replacement) Aortic stenosis, severe HUSSEIN (dyspnea on exertion) Nocturia Pre-syncope Sensorineural hearing loss (SNHL) of both ears Prostatitis Elevated PSA Vitamin D deficiency Mixed conductive and sensorineural hearing loss of right ear with restricted hearing of left ear Venous insufficiency 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 Santos Allergic rhinitis Diabetic peripheral neuropathy associated with type 2 diabetes mellitus Graves disease Personal history of diabetic foot ulcer wears special insoles to prevent Hypertension Dyslipidemia Diabetes type 2, controlled S/P endovascular aneurysm repair Diabetic nephropathy associated with type 2 diabetes mellitus Aortic stenosis Moderate on echo 2021, probably severe but asymptomatic in 2022 H/O iron deficiency anemia Anxiety Medical History Hyperthyroidism Surgical History History of endoscopy History of pancreatic surgery History of abdominal aortic aneurysm repair Hx of colonoscopy Hx of hand surgery History of Mohs micrographic surgery for skin cancer Hx of cataract extraction H/O esophagogastroduodenoscopy [place] teeth extracted Hx of tonsillectomy History of appendectomy Family History Father Myocardial infarction Grandfather Myocardial infarction Denies family history of Ovarian cancer Prostate cancer Breast cancer Colorectal cancer Social History Smoking Status: Former smoker Tobacco Type: Cigarettes Age Started Using Tobacco: 16; Age Quit Using Tobacco: 56; Smoking End Date: 1991; Second Hand Exposure: No; Do You Dip or Chew Tobacco: No; Hx Alcohol Use: Yes Alcohol type: hard liquor Alcohol Intake Frequency: 4 or More x per/Week Alcohol Intake Frequency Comment: mixed drink daily in late afternoon, 3 drinks daily Hx Substance Use: No Preferred Language: Korean Communication Ability: Effective Visual Impairment: Partially Limited Hearing Ability: Use of Hearing Aid Director Of Curriculum And Instruction Required: No Beliefs That Will Affect Care: None marital status: Current Living Situation: Spouse Current Living Situation Comment: HOME current occupational status: retired 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 How many Children do You have: 1 Feels Safe at Home: Yes Childhood Exposure to Second-Hand Smoke: Yes Diet: regular caffeine: Yes during the past year weight has: remained stable Dental Care, Regularly: Yes Physical Activity Frequency: 5-6 Times per Week Seatbelt Use: always Sunscreen Use: No Assistive Devices: Cane, Glasses and Hearing Aid - Bilateral Review of Systems Review of Systems: All systems reviewed & are unremarkable except as noted in Subjective Physical Exam Physical Exam: General: NAD, VS as above, sitting up in bed pleasant Resp: normal respiratory effort, lungs clear to auscultation CV: afib, HR > 100 , no murmur, Abd: normal bowel sounds, non tender, soft Extremities: Moves all extremities, no LE edema Neuro: A&O x3, Skin: intact, no lesions noted Results & Data Results & Data Vital Signs (Past 12 Hours) Vital Signs Temp Pulse Resp BP Pulse Ox O2 Del Method 01/20/25 10:45 115 H 21 132/99 95 Room Air 01/20/25 10:40 107 H 20 136/89 95 Room Air 01/20/25 10:30 112 H 28 H 96 Room Air 01/20/25 10:15 122 H 17 96 Room Air 11/13/25 09:45 124 H 19 130/86 93 Room Air 01/20/25 09:30 120 H 18 136/96 96 Room Air 01/20/25 09:15 135 H 13 117/91 96 Room Air 01/20/25 08:45 133 H 14 126/92 94 01/20/25 08:30 127 H 14 146/90 H 95 Room Air 01/20/25 08:15 140 H 15 149/106 H 93 Room Air 01/20/25 08:14 146 H 01/20/25 08:00 140 H 18 152/105 H 96 Room Air 01/20/25 08:00 97 Room Air 01/20/25 08:00 98.4 F 134 H 16 152/105 H 97 Room Air Laboratory Results CBC, chemistry, TSH reviewed D-dimer reviewed Troponin reviewed Diagnostic Findings chest x-ray and chest CTA reviewed Supervising Physician Co-Signing Physician Notes I personally saw and examined the patient. I independently reviewed the labs, EKG, imaging, problem list, medication list, past medical history and family history. I verified all rosales points and agree with Olga Castelan PA-C with the following exceptions and/or additions: 79 year old male presents to the ER with new onset a. fib while doing cardiac rehab O/E HS RRR, systolic murmurs, Chest CTAB A/P New onset a. fib - TTE, TSH, Mg replace, Continue on dilt drip for rate control as not known if this has been occurring at home, Start stroke prophylaxis with Eliquis PG Care Time/CCT Total # of Minutes Spent Total Time Spent with Patient: Total time spent is greater than 50% in coordination of care (as documented) at patient's floor/unit and/or counseling patient: Coding Level of Care Code 96913 INT INP/OBS CARE 3/75MIN Diagnoses Atrial fibrillation with RVR I48.91 S/P TAVR (transcatheter aortic valve replacement) Z95.2 Hypertension I10 Anxiety F41.9"
[2025-01-20] MEDS: APIXABAN 5 MG TABLET PO ONE (15:17)
[2025-01-20] MEDS: MAGNESIUM SULFATE / D5W 1 GM/100 ML BAG IV SCH (15:17)
--- NOTE | 2025-01-20 15:31 | XCELERA ---
[id number]
[2025-01-20] MEDS ORDERED: GLUCAGON FOR INJ 1 MG VIAL SQ PRN (16:01)
[2025-01-20] MEDS ORDERED: ONDANSETRON INJ 2 MG/ML 2 ML VIAL IV PRN (16:01)
[2025-01-20] MEDS ORDERED: CARBOHYDRATES FOR HYPOGLYCEMIA PO PRN (16:01)
[2025-01-20] MEDS ORDERED: DEXTROSE 50% 50 ML SYRINGE IV PRN (16:01)
[2025-01-20] MEDS ORDERED: POLYETHYLENE (MIRALAX) 17 GM PACK PO PRN (16:01)
[2025-01-20] MEDS ORDERED: ACETAMINOPHEN 325 MG TAB PO PRN (16:01)
[2025-01-20] MEDS ORDERED: GLUCOSE 10 TAB/TUBE PO PRN (16:01)
[2025-01-20] MEDS ORDERED: GLUCOSE 40% GEL 15 GM TUBE PO PRN (16:01)
[2025-01-20] MEDS ORDERED: Nursing to Pharmacy Communication SCH (19:45)
[2025-01-20] MEDS: FERROUS SULFATE 325 MG TAB PO SCH (20:02)
[2025-01-20] MEDS: TAMSULOSIN HCL 0.4 MG CAP PO SCH (20:02)
[2025-01-20] MEDS: APIXABAN 5 MG TABLET PO SCH (20:02)
[2025-01-20] MEDS: ATORVASTATIN 10 MG TAB PO SCH (20:02)
[2025-01-21 07:05] VITALS: RESP 17
[2025-01-21] MEDS: LOSARTAN POTASSIUM 50 MG TAB PO SCH (08:54)
[2025-01-21 08:55] LABS: Hematocrit (blood only) 34.6 % (42.0-52.0); Hemoglobin 12.1 g/dL (14.0-18.0); Mean Corpuscular Hemoglobin 32.4 pg (25.0-34.0); Mean Corpuscular Volume 92.5 fL (80.0-100.0); Platelet Count 153 K/uL (130-400); RDW Standard Deviation 47.8 fL (36.4-46.3); Red Blood Count 3.74 M/uL (4.70-6.10); White Blood Count 5.40 K/ul (4.8-10.8)
[2025-01-21] MEDS: ASPIRIN 81 MG ECTAB PO SCH (08:55)
[2025-01-21] MEDS: UMECLIDINIUM/VILANTEROL 62.5/25MCG 7 PUFFS/INHALER INH SCH (08:58)
[2025-01-21] MEDS ORDERED: ATORVASTATIN 10 MG TAB PO SCH (09:00)
[2025-01-21 09:09] LABS: Anion Gap 9.0 (3-11); Blood Urea Nitrogen 17.0 mg/dl (6-23); Calcium 9.2 mg/dl (8.6-10.3); Carbon Dioxide 26.0 mmol/L (21-32); Chloride 101.0 mmol/L (98-107); Creatinine Clr Calc Pharmacy 54.6 ml/min; Glucose 127.0 mg/dl (70-99(Fasting)); Magnesium 1.9 mg/dl (1.7-2.4); Potassium 4.0 mmol/L (3.5-5.1); Sodium 136.0 mmol/L (136-145)
[2025-01-21 10:48] VITALS: BP 174/75; PULSE 75; TEMP 98.1; O2SAT 96
[2025-01-21] MEDS: METOPROLOL TARTRATE 25 MG TAB PO SCH (11:15)
--- NOTE | 2025-01-21 11:28 | Discharge Summary ---
"Discharge Summary Date of Service January 21, 2025 Principal Dx & Hospital Course #1 = Principal Diagnosis (1) Atrial fibrillation with RVR: (2) S/P TAVR (transcatheter aortic valve replacement): (3) Hypertension: (4) Anxiety: Plan Tyrese is an 79-year-old male with a past medical history of iron deficiency anemia, AAA postrepair, type 2 diabetes, hypertension, TAVR on 10/14/2024 who presents from cardiac rehab for concerns of afib RVR. Inital evaluation also showed elevated d-dimer, but CTA chest without PE. Started on diltazem drip, admitted for cardiology evaluation. # A fib RVR | Recent TAVR - Continue Diltiazem drip, recent echo with EF 65-70% Cardiology consulted Replace Mag. TSH WNL Start Eliquis Echo Ordered Continue ASA and statin Troponin mildly elevated 36.7 --> 34.6 on repeat, likely represents demand ischemia in setting of afib w/ rvr #HTN Continue olmesartan or formulary equivalent #DMT2 - recent A1c 4.9 Home meds: metformin - HELD Check BSG ACHS - without steroid use, suspect will not need SSI #Anxiety - continue Valium #GERD - Continue PPI Patient converted back to NSR shortly following admission. He continues to be in NSR. He is anxious to be discharged home. Pt endorses that this happened prior to his TAVR surgery in October, this is not his first case of afib. He follows locally with Dr. Crouch. His updated TTE with preserved EF, some valvular disease. No evidence of thrombus. He is considered stable for discharge at this time. Will cancel the cardiology consult, discussed plan with Dr. Payton via [employer]. Will start on Lopressor 25mg BID and Eliquis 5mg BID. All questions answered, present at time of my visit. Both in agreement with plan. F/u with pcp within 1 week or sooner if needed. Admission HPI Per Admitting Provider Tyrese is an 79-year-old male with a past medical history of iron deficiency anemia, AAA postrepair, type 2 diabetes, hypertension, TAVR on 10/14/2024 who presents from cardiac rehab. States that he was on the treadmill and the director of cardiac rehabilitation told him that he needed to get off and have an EKG done and was found to be in A-fib RVR. States that just prior to his TAVR procedure the nurse asked him if he had a history of arrhythmias and he said no and they told him that he was possibly in A-fib at that time but by the time they started to do an EKG he had converted. He did say he felt like something was off this morning when he was on the treadmill but did not feel like he was having shortness of breath or palpitations. Otherwise in his normal state of health. Reports that he has been recovering well from his recent TAVR procedure. He took his Protonix and Valium this morning but did not take his other medications He wishes to be a full code ED course: Cardizem drip Valium 5 mg p.o. Discharge Exam GENERAL: 79 yo well-nourished elderly WM. NAD. LUNGS: Clear to auscultation bilaterally. No accessory muscle use. No W/R/R. CARDIOVASCULAR: Regular rate and rhythm +JENNIFER, no g/r ABDOMEN: Soft, non-tender and non-distended. BS normoactive x 4 quad. EXTREMITIES: No edema. Non-tender. Peripheral pulses +2/4. NEUROLOGIC: A&O x3. No focal neurological deficits. CN II-XII grossly intact. PSYCHIATRIC: Cooperative. Appropriate mood and affect. SKIN: Warm, dry, intact. No rashes or lesions. Discharge Plan Discharge Items Patient Disposition: Home - Self-Care Reason For Visit: AFIB RVR Discharge Diagnosis: Atrial fibrillation with rapid rate, resolved Condition on Discharge: Good Activity: Resume your previous activity Non-emergency contact: Primary Care Provider and Senior Controller Call non-emergency contact if: you have any medication questions and your symptoms worsen Follow-up/Referrals: Nash Crouch MD [Physician] - (Follow up in 1-2 weeks) Jensen Mayfield [Primary Care Provider] - Diet: Carb Consistent or DM2 Addtl Attending Provider Instructions: You were hospitalized for a rapid irregular heart rate. You were placed on a medication provided through your IV to help slow your heart rate down. Overnight, your heart converted back into a normal rate and rhythm. However, because this has happened more than once, you have a high risk of going in and out of this arrhythmia. As such, you are being prescribed two new medications to help in the event that you go back into this abnormal rhythm. You are first being prescribed Metoprolol Tartrate (Lopressor) you will take 25mg one tablet twice a day, once in the morning and once at night. You are also being prescribed Eliquis 5mg, you will also take this medication one tablet in the morning and one tablet at night. The Metoprolol will help keep your heart in a lower rate so that if you go back into atrial fibrillation, you heart will not beat too fast. Additionally, the Eliquis is given to thin your blood to prevent the risk of stroke. This medication makes you more prone to bleeding. Take care when you are cutting items/using a knife/etc. Make sure to inform all healthcare providers that you are on Eliquis. You should follow up with your regular leather colorer, Dr. Crouch, in 1-2 weeks. You will also need to follow up with your family doctor within 1 week as well. If you should develop new or worsening symptoms, please call your PCP immediately or go to the ER for evaluation. Pending Studies at Discharge: No Stand-Alone Forms: [facility], Smoking Cessation Medications and DC Order Prescriptions: New Eliquis 5 mg Tablet 5 mg PO BID Qty: 60 0RF umeclidinium-vilanterol [Anoro Ellipta] 62.5-25 mcg/actuation Blister With Device 1 inh inhalation DAILY Qty: 30 0RF metoprolol tartrate 25 mg tablet 25 mg PO BID Qty: 60 0RF Continued vitamin E 400 unit tablet 45 mg PO .once weekly Rx Instructions: once weekly on tuesdays atorvastatin 10 mg tablet 10 mg PO DAILY Qty: 90 3RF Macular Health Formula 5-1-7.5 mg capsule 1 cap PO Q OTHER DAY Rx Instructions: every 48 hours olmesartan 40 mg tablet 40 mg PO DAILY Qty: 90 3RF metformin 1,000 mg tablet 1,000 mg PO BID Qty: 180 3RF tadalafil 5 mg tablet 5 mg PO DAILY Qty: 30 0RF cyanocobalamin (vitamin B-12) 1,000 mcg tablet 1,000 mcg PO .WEEKLY Rx Instructions: once weekly tamsulosin 0.4 mg capsule 0.8 mg PO PM Qty: 180 3RF ferrous sulfate [Feosol] 325 mg (65 mg iron) tablet 400 mg PO DAILY thiamine HCl (vitamin B1) 100 mg capsule 100 mg PO .COMPLEX Rx Instructions: 100 mg orally once a week; every friday albuterol sulfate 90 mcg/actuation HFA aerosol inhaler 2 puff inhalation Q4H PRN (Reason: Wheezing) omeprazole magnesium [Prilosec OTC] 20 mg tablet,delayed release (DR/EC) 20 mg PO QAM cholecalciferol (vitamin D3) [Vitamin D3] 10 mcg (400 unit) capsule 10 mcg PO .weekly Rx Instructions: take once weekly One Daily Women's 18 mg iron-400 mcg-25 mcg tablet 1 tab PO .COMPLEX Rx Instructions: 1 tab orally 3 times weekly; friday, and saturdays acetaminophen 325 mg Tablet 650 mg PO Q4 PRN (Reason: .fever/pain 1-3) diazepam 5 mg tablet 2.5 mg PO QPM Rx Instructions: 1/2 tablet dose diazepam 5 mg tablet 5 mg PO QAM ipratropium bromide 42 mcg (0.06 %) [place],Non-Aerosol 1 - 2 spray INTRANASAL QID PRN (Reason: as instructed) Rx Instructions: administer into each nostril aspirin [Adult Low Dose Aspirin] 81 mg tablet,delayed release (DR/EC) 81 mg PO DAILY Qty: 30 0RF Discharge Orders: Discharge Order (Routine); Ordered 01/21/25 Ordered By: Danica James Admission Data Admit Date/Time: 01/20/25 11:59 Attending Provider: Arnie Perry Admit Provider: Arnie Perry Primary Care Provider: Jensen Mayfield Other Interventions: Discharge Summary Assessment (RN) Last Done: 01/21/25 11:44 Hospital Stay Data Diagnostic Imagining Performed 01/20/25 09:10 CT for pulmonary embolism PE [CT angio chest PE protocol] Stat Pending Results Patient Have Any Pending Studies at Discharge: No Discharge Instructions Given to Patient (Per Discharging Provider) You were hospitalized for a rapid irregular heart rate. You were placed on a medication provided through your IV to help slow your heart rate down. Overnight, your heart converted back into a normal rate and rhythm. However, because this has happened more than once, you have a high risk of going in and out of this arrhythmia. As such, you are being prescribed two new medications to help in the event that you go back into this abnormal rhythm. You are first being prescribed Metoprolol Tartrate (Lopressor) you will take 25mg one tablet twice a day, once in the morning and once at night. You are also being prescribed Eliquis 5mg, you will also take this medication one tablet in the morning and one tablet at night. The Metoprolol will help keep your heart in a lower rate so that if you go back into atrial fibrillation, you heart will not beat too fast. Additionally, the Eliquis is given to thin your blood to prevent the risk of stroke. This medication makes you more prone to bleeding. Take care when you are cutting items/using a knife/etc. Make sure to inform all healthcare providers that you are on Eliquis. You should follow up with your regular leather colorer, Dr. Crouch, in 1-2 weeks. You will also need to follow up with your family doctor within 1 week as well. If you should develop new or worsening symptoms, please call your PCP immediately or go to the ER for evaluation. Total Time Total Time Spent Total Time Spent (In Minutes): 35 minutes Coding Level of Care Code 53728 INP/OBS DISCH >30 MIN Diagnoses Atrial fibrillation with RVR I48.91 S/P TAVR (transcatheter aortic valve replacement) Z95.2 Hypertension I10 Anxiety F41.9"
--- NOTE | 2025-01-21 20:16 | Electrocardiogram Report ---
Test Reason : Blood Pressure : */* mmHG Vent. Rate : 89 BPM Atrial Rate : 89 BPM P-R Int : 200 ms QRS Dur : 124 ms QT Int : 380 ms P-R-T Axes : * -61 84 degrees QTcB Int : 462 ms Normal sinus rhythm Left anterior fascicular block Minimal voltage criteria for LVH, may be normal variant ( Telly product ) Cannot rule out Anteroseptal infarct (cited on or before 20-Jan-2025) Abnormal ECG When compared with ECG of 20-Jan-2025 07:54, Sinus rhythm has replaced Atrial fibrillation Vent. rate has decreased by 49 bpm Confirmed by Sampson Payton ([id number]) on 01/21/2025 8:15:44 PM Referred By: Sampson Payton Confirmed By: Sampson Payton
== END 2025-01-21 13:10 | disposition home or self-care (01) | DRG 309 ==
LOC: ED 07:51 → 2S 11:59